=== PATIENT | female | born 1940 | race Caucasian/White ===

== ENCOUNTER 2020-05-25 17:15 | Inpatient (IN) | payer OTHER, MEDICAID ==
[~2020-05-25] VITALS: Ht 152.4 cm; Wt 78.5 kg
[~2020-05-25 17:15] MED LIST: BLOOD SUGAR DIAGNOSTIC STRIP TEST SCH; INSULIN GLARGINE UD 100 UNITS/ML SYR SUBCUT SCH; INSULIN LISPRO 100 UNITS/ML SUBCUT SCH
[2020-05-25] MEDS ORDERED: DEXAMETHASONE 10 MG/ML VIAL IV ONE (18:00)
[2020-05-25 19:12] LABS: BASOPHILS % 0.3 % (0.0-2.0); HEMATOCRIT. 44.6 % (36.0-48.0); LYMPHOCYTES % 23.6 % (20.0-50.0); MEAN CORPUSCULAR HEMOGLOBIN 28.6 pg (28.0-32.0); MEAN CORPUSCULAR VOLUME 85.2 fL (81.0-99.0); MEAN PLATELET VOLUME 9.6 fl (7.4-10.4); MONOCYTES % 6.1 % (2.0-8.0); PLATELET 182 x1000/uL (130-400); RED BLOOD CELL COUNT 5.23 mill/uL (4.2-5.4); RED CELL DISTRIBUTION WIDTH 14.9 % (11.6-14.6)
[2020-05-25 19:20] LABS: PARTIAL THROMBOPLASTIN TIME 30.1 sec (23.4-31.0)
[2020-05-25 19:21] LABS: CHLORIDE 94 mEq/L (98-107)
[2020-05-25 19:30] LABS: CLARITY URINE CLEAR (CLEAR); COLOR URINE YELLOW (YELLOW); KETONES URINE 1+ (NEGATIVE); LEUKOCYTE ESTERASE URINE TRACE (NEGATIVE); NITRITE URINE NEGATIVE (NEGATIVE); OCCULT BLOOD URINE NEGATIVE (NEGATIVE); PH URINE 7.5 (4.5-8.0); PROTEIN URINE 1+ (NEGATIVE)
[2020-05-25] MEDS ORDERED: POTASSIUM CHLORIDE 20MEQ TABLET SR PO ONE ×2 (19:45)
[2020-05-25] MEDS ORDERED: AZITHROMYCIN 500 MG in DEXT 5% WATER 250 ML IV ONE (19:45)
[2020-05-25] MEDS ORDERED: CEFTRIAXONE 1 G PREMIX 50 ML IV ONE (19:45)
[2020-05-25] MEDS ORDERED: ASPIRIN 325MG TABLET PO ONE (21:00)
[2020-05-25] MEDS ORDERED: CLONIDINE 0.1MG TABLET PO PRN (22:00)
[2020-05-25] MEDS ORDERED: NA PHOS,M-B/NA PHOS,DI-BA ENEMA 118ML PR PRN (22:00)
[2020-05-25] MEDS ORDERED: KETOROLAC 15MG/ML VIAL IV PRN (22:00)
[2020-05-25] MEDS ORDERED: ALBUTEROL 6.7GM HFA INHALER ORI PRN (22:00)
[2020-05-25] MEDS ORDERED: ZOLPIDEM TARTRATE 5MG TABLET PO PRN (22:00)
[2020-05-25] MEDS ORDERED: ONDANSETRON HCL 4MG/2ML INJ IV PRN (22:00)
[2020-05-25] MEDS ORDERED: ACETAMINOPHEN 325MG TABLET PO PRN (22:00)
[2020-05-25] MEDS ORDERED: SODIUM CHLORIDE 0.9% 1000ML BAG (SEPSIS BOLUS) IV NR (22:00)
[2020-05-25] MEDS ORDERED: MAGNESIUM/ALUMINUM HYDROXIDE/SIMETHICONE 30ML UDC PO PRN (22:00)
[2020-05-25] MEDS ORDERED: POTASSIUM CHLORIDE 20MEQ/PACKET PO NR (22:15)
[2020-05-25] MEDS ORDERED: KCL 20MEQ/100ML PREMIX 100 ML IV NR (22:15)
[2020-05-25 23:50] LABS: CREATINE KINASE 39 IU/L (26-192)
[2020-05-25] MEDS: BLOOD SUGAR DIAGNOSTIC STRIP TEST SCH (23:50)
[2020-05-25] MEDS: GUAIFENESIN/DM 600MG/30MG ER TAB 12HR PO SCH (23:50)
[2020-05-25 23:52] LABS: CREATINE KINASE MB FRACTION < 1.0 ng/mL (0.5-3.6)
[2020-05-25] MEDS: ENOXAPARIN 40MG/0.4ML SYR SUBCUT SCH (23:54)
[2020-05-26] MEDS: INSULIN LISPRO 100 UNITS/ML SUBCUT SCH ×3 (00:46→13:51)
[2020-05-26] MEDS: ALBUTEROL 6.7GM HFA INHALER ORI SCH ×2 (03:30→17:50)
[2020-05-26] MEDS: BLOOD SUGAR DIAGNOSTIC STRIP TEST SCH ×4 (06:38→21:00)
[2020-05-26] MEDS ORDERED: ALBUMIN HUMAN 25GM/100ML (25%) IV SCH (08:00)
[2020-05-26] MEDS: INSULIN GLARGINE UD 100 UNITS/ML SYR SUBCUT SCH (09:41)
[2020-05-26] MEDS: ASCORBIC ACID 500 MG TABLET PO SCH (09:41)
[2020-05-26] MEDS: ZINC SULFATE 220 MG ( 50 ) CAPSULE PO SCH (09:41)
[2020-05-26] MEDS: GUAIFENESIN/DM 600MG/30MG ER TAB 12HR PO SCH (09:41)
[2020-05-26] MEDS: ASPIRIN 325MG EC TABLET PO SCH (09:41)
[2020-05-26] MEDS: DEXAMETHASONE 10 MG/ML VIAL IV SCH (09:41)
[2020-05-26] MEDS: CHOLECALCIFEROL (D3) 1000 UNIT TABLET PO SCH (09:41)
[2020-05-26] MEDS: FAMOTIDINE 20MG TABLET PO SCH (09:41)
[2020-05-26 10:02] LABS: BASOPHILS % 0.2 % (0.0-2.0); HEMOGLOBIN. 12.5 g/dL (12.0-16.0); LYMPHOCYTES % 26.1 % (20.0-50.0); MEAN CORPUSCULAR VOLUME 85.9 fL (81.0-99.0); MEAN PLATELET VOLUME 9.3 fl (7.4-10.4); MONOCYTES % 5.6 % (2.0-8.0); NEUTROPHILS % 68.1 % (40.0-76.0); PLATELET 181 x1000/uL (130-400); RED BLOOD CELL COUNT 4.31 mill/uL (4.2-5.4); RED CELL DISTRIBUTION WIDTH 15.6 % (11.6-14.6)
[2020-05-26 11:32] LABS: CHLORIDE 109 mEq/L (98-107)
[2020-05-26 11:39] LABS: PHOSPHORUS 1.4 mg/dL (2.5-4.9)
[2020-05-26 11:41] LABS: CREATINE KINASE 38 IU/L (26-192)
[2020-05-26 11:44] LABS: CREATINE KINASE MB FRACTION < 1.0 ng/mL (0.5-3.6)
[2020-05-26] MEDS ORDERED: AZITHROMYCIN 500 MG in DEXT 5% WATER 250 ML IV SCH (21:00)
[2020-05-26] MEDS ORDERED: CEFTRIAXONE 1 G PREMIX 50 ML IV SCH (21:00)
[2020-05-27] MEDS: INSULIN LISPRO 100 UNITS/ML SUBCUT SCH ×6 (00:59→20:36)
[2020-05-27] MEDS: FAMOTIDINE 20MG TABLET PO SCH ×3 (00:59→20:40)
[2020-05-27] MEDS: GUAIFENESIN/DM 600MG/30MG ER TAB 12HR PO SCH ×3 (00:59→22:00)
[2020-05-27] MEDS: ASCORBIC ACID 500 MG TABLET PO SCH ×3 (00:59→20:42)
[2020-05-27] MEDS: ENOXAPARIN 40MG/0.4ML SYR SUBCUT SCH ×2 (01:00→23:36)
[2020-05-27 11:00] VITALS: BP 152/46
[2020-05-27 12:00] VITALS: BP 116/46
[2020-05-27] MEDS ORDERED: GABA-529 MT (12:56)
[2020-05-27] MEDS ORDERED: DAPA10TA MT (12:56)
[2020-05-27] MEDS ORDERED: SITA1TAB6 PO (12:56)
[2020-05-27] MEDS: ZINC SULFATE 220 MG ( 50 ) CAPSULE PO SCH (13:15)
[2020-05-27] MEDS: CHOLECALCIFEROL (D3) 1000 UNIT TABLET PO SCH (13:15)
[2020-05-27] MEDS: GUAIFENESIN 200MG/10ML SUGAR FREE UDC PO PRN ×2 (13:15→18:19)
[2020-05-27] MEDS: DEXAMETHASONE 10 MG/ML VIAL IV SCH (13:16)
[2020-05-27] MEDS: BENZONATATE 100MG CAPSULE PO SCH ×2 (13:31→22:01)
[2020-05-27] MEDS: INSULIN GLARGINE UD 100 UNITS/ML SYR SUBCUT SCH (13:32)
[2020-05-27 16:00] VITALS: BP 144/63
[2020-05-27] MEDS: BLOOD SUGAR DIAGNOSTIC STRIP TEST SCH ×2 (18:09→20:38)
[2020-05-27] MEDS: ASPIRIN 325MG EC TABLET PO SCH (18:20)
[2020-05-27] MEDS: ACETAMINOPHEN 325MG TABLET PO PRN (18:20)
[2020-05-27] MEDS: ALBUTEROL 6.7GM HFA INHALER ORI SCH (21:41)
[2020-05-27] MEDS: AZITHROMYCIN 500 MG in DEXT 5% WATER 250 ML IV SCH (21:44)
[2020-05-27] MEDS: CEFTRIAXONE 1,000 MG in CEFTRIAXONE 1 G PREMIX 50 ML IV SCH (21:46)
[2020-05-28] MEDS: GUAIFENESIN 200MG/10ML SUGAR FREE UDC PO PRN ×3 (00:34→21:19)
[2020-05-28] MEDS: BLOOD SUGAR DIAGNOSTIC STRIP TEST SCH ×4 (05:59→21:19)
[2020-05-28] MEDS: ALBUTEROL 6.7GM HFA INHALER ORI SCH ×3 (06:02→15:00)
[2020-05-28] MEDS: BENZONATATE 100MG CAPSULE PO SCH ×3 (06:09→21:18)
[2020-05-28] MEDS: INSULIN LISPRO 100 UNITS/ML SUBCUT SCH ×4 (06:54→21:00)
[2020-05-28] MEDS: ZINC SULFATE 220 MG ( 50 ) CAPSULE PO SCH (09:00)
[2020-05-28] MEDS: DEXAMETHASONE 10 MG/ML VIAL IV SCH (09:00)
[2020-05-28] MEDS: ASCORBIC ACID 500 MG TABLET PO SCH ×2 (09:01→21:18)
[2020-05-28] MEDS: ASPIRIN 325MG EC TABLET PO SCH (09:01)
[2020-05-28] MEDS: FAMOTIDINE 20MG TABLET PO SCH ×2 (09:01→21:18)
[2020-05-28] MEDS: CHOLECALCIFEROL (D3) 1000 UNIT TABLET PO SCH (09:01)
[2020-05-28] MEDS: GUAIFENESIN/DM 600MG/30MG ER TAB 12HR PO SCH ×2 (11:13→21:18)
[2020-05-28] MEDS: INSULIN GLARGINE UD 100 UNITS/ML SYR SUBCUT SCH (11:14)
[2020-05-28 12:00] VITALS: BP 112/59
[2020-05-28 16:00] VITALS: BP 123/57
[2020-05-28 20:00] VITALS: BP 92/71
[2020-05-28] MEDS: CEFTRIAXONE 1,000 MG in CEFTRIAXONE 1 G PREMIX 50 ML IV SCH (21:17)
[2020-05-28] MEDS: AZITHROMYCIN 500 MG in DEXT 5% WATER 250 ML IV SCH (21:18)
[2020-05-28] MEDS: ENOXAPARIN 40MG/0.4ML SYR SUBCUT SCH (21:18)
[2020-05-28 22:46] LABS: BG BASE EXCESS 1.1 mmol/L (-2.0-2.0); BG CARBOXYHEMOGLOBIN 0.7 % (0.5-1.5); BG DEOXYHEMOGLOBIN 7.9 % (0.0-5.0); BG FRACTION INSPIRED OXYGEN 100; BG HCO3 ACT 24.4 mmol/L (22.0-26.0); BG METHEMOGLOBIN 0.3 % (0.0-1.5); BG OXYHEMOGLOBIN 91.1 % (94.0-97.0); BG PCO2 34.7 mmHg (35.0-45.0); BG PH 7.465 (7.350-7.450); BG PO2 61.9 mmHg (75.0-100.0); BG SAMPLE SITE RIGHT RADIAL; BG TOTAL HEMOGLOBIN 12.7 g/dL (12.0-18.0); BG VENT MODE MASK - BIPAP
[2020-05-29] VITALS: BP 159/82
[2020-05-29 04:00] VITALS: BP 133/64
[2020-05-29] MEDS: BENZONATATE 100MG CAPSULE PO SCH ×3 (05:39→21:23)
[2020-05-29 08:00] VITALS: BP 110/63
[2020-05-29] MEDS: ASPIRIN 325MG EC TABLET PO SCH (08:29)
[2020-05-29] MEDS: FAMOTIDINE 20MG TABLET PO SCH ×2 (08:29→21:27)
[2020-05-29] MEDS: CHOLECALCIFEROL (D3) 1000 UNIT TABLET PO SCH (08:29)
[2020-05-29] MEDS: BLOOD SUGAR DIAGNOSTIC STRIP TEST SCH ×4 (08:30→21:26)
[2020-05-29] MEDS: DEXAMETHASONE 10 MG/ML VIAL IV SCH (08:30)
[2020-05-29] MEDS: ASCORBIC ACID 500 MG TABLET PO SCH ×2 (08:30→20:55)
[2020-05-29] MEDS: ZINC SULFATE 220 MG ( 50 ) CAPSULE PO SCH (08:30)
[2020-05-29] MEDS: INSULIN LISPRO 100 UNITS/ML SUBCUT SCH ×4 (08:32→21:00)
[2020-05-29] MEDS: GUAIFENESIN/DM 600MG/30MG ER TAB 12HR PO SCH ×2 (10:23→21:22)
[2020-05-29] MEDS: INSULIN GLARGINE UD 100 UNITS/ML SYR SUBCUT SCH (10:24)
[2020-05-29 12:00] VITALS: BP 112/85
[2020-05-29] MEDS: ALBUTEROL 6.7GM HFA INHALER ORI SCH ×2 (15:00→23:06)
[2020-05-29 16:00] VITALS: BP 132/57
[2020-05-29 20:00] VITALS: BP 116/74
[2020-05-29] MEDS: CEFTRIAXONE 1,000 MG in CEFTRIAXONE 1 G PREMIX 50 ML IV SCH (20:55)
[2020-05-29] MEDS: AZITHROMYCIN 500 MG in DEXT 5% WATER 250 ML IV SCH (21:59)
[2020-05-29] MEDS: ENOXAPARIN 40MG/0.4ML SYR SUBCUT SCH (22:00)
[2020-05-30] VITALS: BP 142/80
[2020-05-30 04:00] VITALS: BP 144/63
[2020-05-30] MEDS: BLOOD SUGAR DIAGNOSTIC STRIP TEST SCH ×4 (05:49→21:19)
[2020-05-30] MEDS: BENZONATATE 100MG CAPSULE PO SCH ×3 (05:49→21:19)
[2020-05-30] MEDS: ALBUTEROL 6.7GM HFA INHALER ORI SCH ×4 (05:50→21:34)
[2020-05-30 08:00] VITALS: BP 115/40
[2020-05-30] MEDS: INSULIN LISPRO 100 UNITS/ML SUBCUT SCH ×4 (08:09→21:00)
[2020-05-30] MEDS: DEXAMETHASONE 10 MG/ML VIAL IV SCH (11:18)
[2020-05-30] MEDS: CHOLECALCIFEROL (D3) 1000 UNIT TABLET PO SCH (11:18)
[2020-05-30] MEDS: ASPIRIN 325MG EC TABLET PO SCH (11:18)
[2020-05-30] MEDS: ASCORBIC ACID 500 MG TABLET PO SCH ×2 (11:18→21:18)
[2020-05-30] MEDS: GUAIFENESIN/DM 600MG/30MG ER TAB 12HR PO SCH ×2 (11:18→21:18)
[2020-05-30] MEDS: ZINC SULFATE 220 MG ( 50 ) CAPSULE PO SCH (11:18)
[2020-05-30] MEDS: FAMOTIDINE 20MG TABLET PO SCH ×2 (11:18→21:18)
[2020-05-30] MEDS: INSULIN GLARGINE UD 100 UNITS/ML SYR SUBCUT SCH (11:25)
[2020-05-30 12:00] VITALS: BP 126/39
[2020-05-30 16:00] VITALS: BP 107/68
[2020-05-30 20:00] VITALS: BP 109/49
[2020-05-30] MEDS: DEXTROSE 50% WATER 50ML SYRINGE IV PRN (20:09)
[2020-05-30] MEDS: AZITHROMYCIN 500 MG in DEXT 5% WATER 250 ML IV SCH (21:17)
[2020-05-30] MEDS: CEFTRIAXONE 1,000 MG in CEFTRIAXONE 1 G PREMIX 50 ML IV SCH (21:18)
[2020-05-30] MEDS: ENOXAPARIN 40MG/0.4ML SYR SUBCUT SCH (23:00)
[2020-05-31] VITALS: BP 114/77
[2020-05-31] MEDS: ALBUTEROL 6.7GM HFA INHALER ORI SCH ×4 (03:00→21:57)
[2020-05-31 04:00] VITALS: BP 110/82
[2020-05-31] MEDS: BENZONATATE 100MG CAPSULE PO SCH ×3 (05:59→21:17)
[2020-05-31] MEDS: DEXTROSE 50% WATER 50ML SYRINGE IV PRN ×2 (06:37→12:19)
[2020-05-31] MEDS: INSULIN LISPRO 100 UNITS/ML SUBCUT SCH ×4 (07:19→21:57)
[2020-05-31] MEDS: BLOOD SUGAR DIAGNOSTIC STRIP TEST SCH ×4 (07:19→21:00)
[2020-05-31] MEDS: FAMOTIDINE 20MG TABLET PO SCH ×2 (08:35→21:17)
[2020-05-31] MEDS: ZINC SULFATE 220 MG ( 50 ) CAPSULE PO SCH (08:35)
[2020-05-31] MEDS: CHOLECALCIFEROL (D3) 1000 UNIT TABLET PO SCH (08:35)
[2020-05-31] MEDS: ASCORBIC ACID 500 MG TABLET PO SCH ×2 (08:35→21:17)
[2020-05-31] MEDS: ASPIRIN 325MG EC TABLET PO SCH (08:35)
[2020-05-31] MEDS: DEXAMETHASONE 10 MG/ML VIAL IV SCH (08:35)
[2020-05-31] MEDS: DEXTROSE 5% WATER 1,000 ML IV SCH (08:36)
[2020-05-31] MEDS: INSULIN GLARGINE UD 100 UNITS/ML SYR SUBCUT SCH (10:00)
[2020-05-31 10:53] LABS: BASOPHILS % 0.2 % (0.0-2.0); EOSINOPHILS % 0.1 % (0.0-5.0); HEMATOCRIT. 42.4 % (36.0-48.0); HEMOGLOBIN. 14.5 g/dL (12.0-16.0); LYMPHOCYTES % 9.4 % (20.0-50.0); MEAN CORPUSCULAR HEMOGLOBIN 29.1 pg (28.0-32.0); MEAN CORPUSCULAR VOLUME 85.2 fL (81.0-99.0); MONOCYTES % 3.7 % (2.0-8.0); NEUTROPHILS % 86.6 % (40.0-76.0); RED BLOOD CELL COUNT 4.98 mill/uL (4.2-5.4); RED CELL DISTRIBUTION WIDTH 15.4 % (11.6-14.6)
[2020-05-31 10:57] LABS: CHLORIDE 101 mEq/L (98-107)
[2020-05-31] MEDS: GUAIFENESIN/DM 600MG/30MG ER TAB 12HR PO SCH ×2 (11:37→21:17)
[2020-05-31] MEDS ORDERED: LIDOCAINE HCL 1% 20ML VIAL (Pyxis) INJ ONE (11:38)
[2020-05-31] MEDS: POTASSIUM CHLORIDE 20MEQ/PACKET PO SCH ×2 (11:38→16:51)
[2020-05-31 12:00] VITALS: BP 125/92
[2020-05-31 12:30] LABS: PLATELET 297 x1000/uL (130-400)
[2020-05-31] MEDS: POTASSIUM CHLORIDE INJ 40 MEQ in DEXT 5% WATER 250 ML IV SCH ×2 (13:10→16:51)
[2020-05-31 16:00] VITALS: BP 132/58
[2020-05-31] MEDS ORDERED: POTASSIUM CHLORIDE 20MEQ/PACKET PO SCH (16:43)
[2020-05-31 20:00] VITALS: BP 124/69
[2020-05-31] MEDS: ENOXAPARIN 40MG/0.4ML SYR SUBCUT SCH (22:06)
[2020-06-01] VITALS: BP_SYST 112; BP_SYST 162; BP_DIAS 83
[2020-06-01] MEDS: ACETAMINOPHEN 325MG TABLET PO PRN (00:32)
[2020-06-01] MEDS: ALBUTEROL 6.7GM HFA INHALER ORI SCH ×4 (03:00→21:34)
[2020-06-01] MEDS: DEXTROSE 5% WATER 1,000 ML IV SCH (03:45)
[2020-06-01 04:00] VITALS: BP 122/64
[2020-06-01] MEDS: BLOOD SUGAR DIAGNOSTIC STRIP TEST SCH ×4 (05:05→20:54)
[2020-06-01] MEDS: BENZONATATE 100MG CAPSULE PO SCH ×3 (05:59→21:34)
[2020-06-01 08:00] VITALS: BP 147/52
[2020-06-01] MEDS: ASCORBIC ACID 500 MG TABLET PO SCH ×2 (10:08→21:34)
[2020-06-01] MEDS: DEXAMETHASONE 10 MG/ML VIAL IV SCH (10:09)
[2020-06-01] MEDS: FAMOTIDINE 20MG TABLET PO SCH ×2 (10:09→21:34)
[2020-06-01] MEDS: GUAIFENESIN/DM 600MG/30MG ER TAB 12HR PO SCH ×2 (10:09→21:34)
[2020-06-01] MEDS: ZINC SULFATE 220 MG ( 50 ) CAPSULE PO SCH (10:09)
[2020-06-01] MEDS: CHOLECALCIFEROL (D3) 1000 UNIT TABLET PO SCH (10:09)
[2020-06-01] MEDS: ASPIRIN 325MG EC TABLET PO SCH (10:09)
[2020-06-01] MEDS: INSULIN LISPRO 100 UNITS/ML SUBCUT SCH ×4 (10:10→20:54)
[2020-06-01] MEDS: INSULIN GLARGINE UD 100 UNITS/ML SYR SUBCUT SCH (10:54)
[2020-06-01 12:00] VITALS: BP 112/48
[2020-06-01 17:02] LABS: CHLORIDE 103 mEq/L (98-107)
[2020-06-01] MEDS: POTASSIUM CHLORIDE 20MEQ TABLET SR PO SCH (19:10)
[2020-06-01 20:00] VITALS: BP_SYST 111; BP_SYST 130; BP_DIAS 60; BP_DIAS 65
[2020-06-01] MEDS: ENOXAPARIN 40MG/0.4ML SYR SUBCUT SCH (22:25)
[2020-06-02] VITALS: BP 114/66
[2020-06-02] MEDS: DEXTROSE 5% WATER 1,000 ML IV SCH ×2 (03:27→16:42)
[2020-06-02] MEDS: ALBUTEROL 6.7GM HFA INHALER ORI SCH ×4 (03:27→22:00)
[2020-06-02 04:00] VITALS: BP 143/80
[2020-06-02] MEDS: BENZONATATE 100MG CAPSULE PO SCH ×3 (05:19→21:59)
[2020-06-02] MEDS: BLOOD SUGAR DIAGNOSTIC STRIP TEST SCH ×4 (06:36→21:00)
[2020-06-02 08:00] VITALS: BP 129/52
[2020-06-02] MEDS: ASPIRIN 325MG EC TABLET PO SCH (08:15)
[2020-06-02] MEDS: DEXAMETHASONE 10 MG/ML VIAL IV SCH (08:15)
[2020-06-02] MEDS: FAMOTIDINE 20MG TABLET PO SCH ×2 (08:15→21:59)
[2020-06-02] MEDS: ASCORBIC ACID 500 MG TABLET PO SCH ×2 (08:15→21:59)
[2020-06-02] MEDS: CHOLECALCIFEROL (D3) 1000 UNIT TABLET PO SCH (08:15)
[2020-06-02] MEDS: POTASSIUM CHLORIDE 20MEQ TABLET SR PO SCH (08:15)
[2020-06-02] MEDS: ZINC SULFATE 220 MG ( 50 ) CAPSULE PO SCH (08:15)
[2020-06-02] MEDS: INSULIN LISPRO 100 UNITS/ML SUBCUT SCH ×4 (08:17→21:00)
[2020-06-02] MEDS: INSULIN GLARGINE UD 100 UNITS/ML SYR SUBCUT SCH (09:32)
[2020-06-02] MEDS: GUAIFENESIN/DM 600MG/30MG ER TAB 12HR PO SCH ×2 (09:32→21:59)
[2020-06-02 12:00] VITALS: BP 91/43
[2020-06-02 16:00] VITALS: BP 95/34
[2020-06-02 20:00] VITALS: BP 112/58
[2020-06-02] MEDS: ENOXAPARIN 40MG/0.4ML SYR SUBCUT SCH (22:13)
[2020-06-03] VITALS: BP 119/50
[2020-06-03] MEDS: ALBUTEROL 6.7GM HFA INHALER ORI SCH ×4 (02:35→21:00)
[2020-06-03 04:00] VITALS: BP 107/32
[2020-06-03] MEDS: BENZONATATE 100MG CAPSULE PO SCH ×3 (05:08→20:59)
[2020-06-03] MEDS: BLOOD SUGAR DIAGNOSTIC STRIP TEST SCH ×4 (05:52→21:00)
[2020-06-03] MEDS: INSULIN LISPRO 100 UNITS/ML SUBCUT SCH ×4 (07:35→20:53)
[2020-06-03] MEDS: FAMOTIDINE 20MG TABLET PO SCH ×2 (08:29→20:59)
[2020-06-03] MEDS: ZINC SULFATE 220 MG ( 50 ) CAPSULE PO SCH (08:29)
[2020-06-03] MEDS: CHOLECALCIFEROL (D3) 1000 UNIT TABLET PO SCH (08:29)
[2020-06-03] MEDS: ASCORBIC ACID 500 MG TABLET PO SCH ×2 (08:29→20:59)
[2020-06-03] MEDS: DEXAMETHASONE 10 MG/ML VIAL IV SCH (08:30)
[2020-06-03] MEDS: ASPIRIN 325MG EC TABLET PO SCH (08:30)
[2020-06-03] MEDS: GUAIFENESIN/DM 600MG/30MG ER TAB 12HR PO SCH ×2 (10:22→20:59)
[2020-06-03] MEDS: INSULIN GLARGINE UD 100 UNITS/ML SYR SUBCUT SCH (10:22)
[2020-06-03 12:00] VITALS: BP 142/55
[2020-06-03] MEDS: DEXTROSE 5% WATER 1,000 ML IV SCH (14:57)
[2020-06-03 16:00] VITALS: BP 124/65
[2020-06-03 21:06] VITALS: BP 128/45
[2020-06-03] MEDS: ENOXAPARIN 40MG/0.4ML SYR SUBCUT SCH (22:50)
[2020-06-04] VITALS: BP 110/64
[2020-06-04] MEDS: ALBUTEROL 6.7GM HFA INHALER ORI SCH ×4 (03:44→20:06)
[2020-06-04 04:00] VITALS: BP 120/51
[2020-06-04] MEDS: BENZONATATE 100MG CAPSULE PO SCH ×3 (05:07→22:35)
[2020-06-04] MEDS: BLOOD SUGAR DIAGNOSTIC STRIP TEST SCH ×4 (06:07→21:00)
[2020-06-04] MEDS: INSULIN LISPRO 100 UNITS/ML SUBCUT SCH ×4 (06:11→21:57)
[2020-06-04 08:00] VITALS: BP 112/59
[2020-06-04] MEDS: ASPIRIN 325MG EC TABLET PO SCH (08:52)
[2020-06-04] MEDS: ZINC SULFATE 220 MG ( 50 ) CAPSULE PO SCH (08:52)
[2020-06-04] MEDS: ASCORBIC ACID 500 MG TABLET PO SCH ×2 (08:52→20:06)
[2020-06-04] MEDS: DEXAMETHASONE 10 MG/ML VIAL IV SCH (08:53)
[2020-06-04] MEDS: CHOLECALCIFEROL (D3) 1000 UNIT TABLET PO SCH (08:53)
[2020-06-04] MEDS: FAMOTIDINE 20MG TABLET PO SCH ×2 (09:00→20:06)
[2020-06-04] MEDS: INSULIN GLARGINE UD 100 UNITS/ML SYR SUBCUT SCH (09:36)
[2020-06-04] MEDS: GUAIFENESIN/DM 600MG/30MG ER TAB 12HR PO SCH ×2 (09:36→22:35)
[2020-06-04] MEDS: DEXTROSE 5% WATER 1,000 ML IV SCH (11:42)
[2020-06-04 12:00] VITALS: BP 132/52
[2020-06-04 20:00] VITALS: BP 128/90
[2020-06-04] MEDS: ENOXAPARIN 40MG/0.4ML SYR SUBCUT SCH (22:34)
[2020-06-05] VITALS (32 sets, daily range): BP systolic 66–214; BP diastolic 50–144
[2020-06-05] MEDS: ALBUTEROL 6.7GM HFA INHALER ORI SCH ×3 (02:19→14:18)
[2020-06-05] MEDS: BENZONATATE 100MG CAPSULE PO SCH ×3 (05:10→22:00)
[2020-06-05] MEDS: DEXTROSE 5% WATER 1,000 ML IV SCH (05:11)
[2020-06-05] MEDS: BLOOD SUGAR DIAGNOSTIC STRIP TEST SCH ×4 (05:36→21:00)
[2020-06-05] MEDS: ZINC SULFATE 220 MG ( 50 ) CAPSULE PO SCH (08:10)
[2020-06-05] MEDS: ASPIRIN 325MG EC TABLET PO SCH (08:10)
[2020-06-05] MEDS: ASCORBIC ACID 500 MG TABLET PO SCH ×2 (08:10→21:00)
[2020-06-05] MEDS: FAMOTIDINE 20MG TABLET PO SCH ×2 (08:10→21:00)
[2020-06-05] MEDS: INSULIN LISPRO 100 UNITS/ML SUBCUT SCH ×4 (08:11→23:13)
[2020-06-05] MEDS: CHOLECALCIFEROL (D3) 1000 UNIT TABLET PO SCH (08:11)
[2020-06-05] MEDS: GUAIFENESIN/DM 600MG/30MG ER TAB 12HR PO SCH ×2 (09:22→22:00)
[2020-06-05] MEDS: INSULIN GLARGINE UD 100 UNITS/ML SYR SUBCUT SCH (09:23)
[2020-06-05] MEDS: METHYLPREDNISOLONE SOD SUCC 40 MG/ML VIAL IV SCH ×2 (14:18→23:10)
[2020-06-05] MEDS ORDERED: LORAZEPAM 2MG/ML CPJ IV PRN (14:35)
[2020-06-05] MEDS ORDERED: MIDAZOLAM HCL 100 MG in SODIUM CHLORIDE 0.9% 80 ML IV PRN (15:15)
[2020-06-05] MEDS: PROPOFOL 10MG/ML 100ML 100 ML IV PRN ×2 (15:27→21:33)
[2020-06-05 16:08] LABS: BG BASE EXCESS 2.7 mmol/L (-2.0-2.0); BG CARBOXYHEMOGLOBIN 1.2 % (0.5-1.5); BG DEOXYHEMOGLOBIN 20.3 % (0.0-5.0); BG FRACTION INSPIRED OXYGEN 100; BG HCO3 ACT 27.8 mmol/L (22.0-26.0); BG METHEMOGLOBIN 0.3 % (0.0-1.5); BG OXYGEN SATURATION 79.4 % (92.0-98.5); BG OXYHEMOGLOBIN 78.2 % (94.0-97.0); BG PCO2 44.7 mmHg (35.0-45.0); BG PH 7.412 (7.350-7.450); BG PO2 44.3 mmHg (75.0-100.0); BG SAMPLE SITE RIGHT RADIAL; BG TOTAL HEMOGLOBIN 14.5 g/dL (12.0-18.0); BG VENT MODE VENT - AC
[2020-06-05] MEDS: NOREPINEPHRINE 32 MG in DEXT 5% WATER 218 ML IV PRN (17:24)
[2020-06-05] MEDS: PHENYLEPHRINE 100 MG in DEXT 5% WATER 240 ML IV PRN (17:26)
[2020-06-05 17:53] LABS: HEMATOCRIT. 40.7 % (36.0-48.0); HEMOGLOBIN. 13.5 g/dL (12.0-16.0); MEAN CORPUSCULAR HEMOGLOBIN 28.4 pg (28.0-32.0); MEAN CORPUSCULAR VOLUME 85.4 fL (81.0-99.0); MEAN PLATELET VOLUME 9.5 fl (7.4-10.4); PLATELET 259 x1000/uL (130-400); RED BLOOD CELL COUNT 4.76 mill/uL (4.2-5.4); RED CELL DISTRIBUTION WIDTH 15.7 % (11.6-14.6)
[2020-06-05 18:15] LABS: CHLORIDE 98 mEq/L (98-107)
[2020-06-05 18:18] LABS: PLATELET ESTIMATE NORMAL
[2020-06-05] MEDS: IPRATROPIUM/ALBUTEROL 0.5-3(2.5)MG/3ML NEB HHN SCH (20:00)
[2020-06-05] MEDS: ENOXAPARIN 40MG/0.4ML SYR SUBCUT SCH (23:10)
[2020-06-05] MEDS: FENTANYL CITRATE/PF 2,500 MCG in SODIUM CHLORIDE 0.9% 200 ML IV PRN (23:27)
[2020-06-06] VITALS (85 sets, daily range): BP systolic 85–190; BP diastolic 26–90
[2020-06-06] MEDS: IPRATROPIUM/ALBUTEROL 0.5-3(2.5)MG/3ML NEB HHN SCH ×5 (03:50→20:45)
[2020-06-06 05:12] LABS: CHLORIDE 97 mEq/L (98-107)
[2020-06-06 05:17] LABS: HEMATOCRIT. 38.8 % (36.0-48.0); HEMOGLOBIN. 12.9 g/dL (12.0-16.0); MEAN CORPUSCULAR HEMOGLOBIN 28.4 pg (28.0-32.0); MEAN CORPUSCULAR VOLUME 85.6 fL (81.0-99.0); MEAN PLATELET VOLUME 9.6 fl (7.4-10.4); PLATELET 220 x1000/uL (130-400); RED BLOOD CELL COUNT 4.53 mill/uL (4.2-5.4); RED CELL DISTRIBUTION WIDTH 15.8 % (11.6-14.6)
[2020-06-06] MEDS: METHYLPREDNISOLONE SOD SUCC 40 MG/ML VIAL IV SCH ×2 (05:21→14:39)
[2020-06-06] MEDS: BENZONATATE 100MG CAPSULE PO SCH ×3 (06:00→22:00)
[2020-06-06] MEDS: INSULIN LISPRO 100 UNITS/ML SUBCUT SCH ×3 (06:41→18:04)
[2020-06-06] MEDS: BLOOD SUGAR DIAGNOSTIC STRIP TEST SCH ×4 (06:44→21:00)
[2020-06-06] MEDS: DEXTROSE 5% WATER 1,000 ML IV SCH (06:53)
[2020-06-06] MEDS: ASCORBIC ACID 500 MG TABLET PO SCH (08:30)
[2020-06-06] MEDS: DOCUSATE SODIUM 100MG CAPSULE PO PRN (08:30)
[2020-06-06] MEDS: ASPIRIN 325MG EC TABLET PO SCH (08:30)
[2020-06-06] MEDS: GUAIFENESIN/DM 600MG/30MG ER TAB 12HR PO SCH (08:30)
[2020-06-06] MEDS: ZINC SULFATE 220 MG ( 50 ) CAPSULE PO SCH (08:30)
[2020-06-06] MEDS: CHOLECALCIFEROL (D3) 1000 UNIT TABLET PO SCH (08:30)
[2020-06-06] MEDS: FAMOTIDINE 20MG TABLET PO SCH (08:30)
[2020-06-06] MEDS: FENTANYL CITRATE/PF 2,500 MCG in SODIUM CHLORIDE 0.9% 200 ML IV PRN (08:32)
[2020-06-06] MEDS ORDERED: [UNRECOGNIZED DRUG - REMARK] XX SCH (09:30)
[2020-06-06 10:06] LABS: BG BASE EXCESS -0.7 mmol/L (-2.0-2.0); BG CARBOXYHEMOGLOBIN 0.3 % (0.5-1.5); BG DEOXYHEMOGLOBIN 0.9 % (0.0-5.0); BG FRACTION INSPIRED OXYGEN 100; BG HCO3 ACT 23.9 mmol/L (22.0-26.0); BG METHEMOGLOBIN 0.3 % (0.0-1.5); BG OXYGEN SATURATION 99.1 % (92.0-98.5); BG OXYHEMOGLOBIN 98.5 % (94.0-97.0); BG PCO2 39.3 mmHg (35.0-45.0); BG PH 7.402 (7.350-7.450); BG PO2 288.4 mmHg (75.0-100.0); BG SAMPLE SITE RIGHT RADIAL; BG TOTAL HEMOGLOBIN 12.7 g/dL (12.0-18.0); BG TOTAL RESPIRATORY RATE 22 b/min; BG VENT MODE VENT - AC
[2020-06-06] MEDS ORDERED: VANCOMYCIN 1 G PREMIX 200 ML IV NR (11:00)
[2020-06-06] MEDS: INSULIN GLARGINE UD 100 UNITS/ML SYR SUBCUT SCH (11:15)
[2020-06-06] MEDS: MEROPENEM 1000MG in NORMAL SALINE 100ML IV SCH ×2 (14:39→22:00)
[2020-06-06] MEDS: DEXT 5%/0.9% NACL 1,000 ML IV SCH (14:40)
[2020-06-06 18:39] LABS: CLARITY URINE CLEAR (CLEAR); COLOR URINE DARK YELLOW (YELLOW); KETONES URINE NEGATIVE (NEGATIVE); LEUKOCYTE ESTERASE URINE 1+ (NEGATIVE); NITRITE URINE NEGATIVE (NEGATIVE); OCCULT BLOOD URINE 2+ (NEGATIVE); PROTEIN URINE 1+ (NEGATIVE); SPECIFIC GRAVITY URINE 1.018 (1.005-1.030)
[2020-06-06 22:05] LABS: PLATELET ESTIMATE NORMAL
[2020-06-07] VITALS (220 sets, daily range): BP systolic 80–172; BP diastolic 38–87
[2020-06-07] MEDS: ASCORBIC ACID 500 MG TABLET PO SCH ×3 (00:08→22:01)
[2020-06-07] MEDS: FAMOTIDINE 20MG TABLET PO SCH ×3 (00:09→22:01)
[2020-06-07] MEDS: METHYLPREDNISOLONE SOD SUCC 40 MG/ML VIAL IV SCH ×4 (02:26→22:01)
[2020-06-07] MEDS: ENOXAPARIN 40MG/0.4ML SYR SUBCUT SCH ×2 (02:29→22:02)
[2020-06-07] MEDS: VANCOMYCIN 500 MG PREMIX 100 ML IV SCH ×3 (02:36→23:52)
[2020-06-07] MEDS: GUAIFENESIN/DM 600MG/30MG ER TAB 12HR PO SCH ×3 (02:36→21:09)
[2020-06-07] MEDS: BENZONATATE 100MG CAPSULE PO SCH ×3 (05:20→21:09)
[2020-06-07 05:31] LABS: HEMATOCRIT. 36.6 % (36.0-48.0); MEAN CORPUSCULAR VOLUME 85.7 fL (81.0-99.0); MEAN PLATELET VOLUME 9.9 fl (7.4-10.4); PLATELET 259 x1000/uL (130-400); RED BLOOD CELL COUNT 4.27 mill/uL (4.2-5.4); RED CELL DISTRIBUTION WIDTH 15.7 % (11.6-14.6)
[2020-06-07 05:40] LABS: CHLORIDE 102 mEq/L (98-107)
[2020-06-07] MEDS: MEROPENEM 1000MG in NORMAL SALINE 100ML IV SCH ×3 (06:07→21:59)
[2020-06-07] MEDS: BLOOD SUGAR DIAGNOSTIC STRIP TEST SCH ×4 (06:25→23:56)
[2020-06-07] MEDS: MIDAZOLAM 100MG/100ML PREMIX IV PRN ×2 (06:32→18:53)
[2020-06-07] MEDS: INSULIN LISPRO 100 UNITS/ML SUBCUT SCH ×4 (06:34→17:26)
[2020-06-07 08:18] LABS: BG BASE EXCESS 0.9 mmol/L (-2.0-2.0); BG CARBOXYHEMOGLOBIN 0.4 % (0.5-1.5); BG DEOXYHEMOGLOBIN 3.6 % (0.0-5.0); BG HCO3 ACT 26.4 mmol/L (22.0-26.0); BG METHEMOGLOBIN 0.3 % (0.0-1.5); BG OXYGEN SATURATION 96.4 % (92.0-98.5); BG OXYHEMOGLOBIN 95.7 % (94.0-97.0); BG PCO2 45.8 mmHg (35.0-45.0); BG PH 7.379 (7.350-7.450); BG PO2 91.3 mmHg (75.0-100.0); BG SAMPLE SITE RIGHT RADIAL; BG TOTAL HEMOGLOBIN 13.1 g/dL (12.0-18.0); BG VENT MODE VENT - AC
[2020-06-07] MEDS: IPRATROPIUM/ALBUTEROL 0.5-3(2.5)MG/3ML NEB HHN SCH ×3 (08:34→20:53)
[2020-06-07] MEDS: DOCUSATE SODIUM 100MG CAPSULE PO PRN (08:38)
[2020-06-07] MEDS: CHOLECALCIFEROL (D3) 1000 UNIT TABLET PO SCH (08:39)
[2020-06-07] MEDS: ASPIRIN 325MG EC TABLET PO SCH (08:39)
[2020-06-07] MEDS: ZINC SULFATE 220 MG ( 50 ) CAPSULE PO SCH (09:43)
[2020-06-07] MEDS: FENTANYL CITRATE/PF 2,500 MCG in SODIUM CHLORIDE 0.9% 200 ML IV PRN (09:44)
[2020-06-07] MEDS: INSULIN GLARGINE UD 100 UNITS/ML SYR SUBCUT SCH (09:46)
[2020-06-07] MEDS: DEXT 5%/0.9% NACL 1,000 ML IV SCH (10:22)
[2020-06-07 12:28] LABS: PLATELET ESTIMATE NORMAL
[2020-06-07] MEDS ORDERED: POTASSIUM CHLORIDE 20MEQ/PACKET PO NR (17:00)
[2020-06-07] MEDS ORDERED: MAGNESIUM 2 G PREMIX 50 ML IV NR (19:00)
[2020-06-08] VITALS (96 sets, daily range): BP systolic 83–196; BP diastolic 27–117
[2020-06-08] MEDS: INSULIN LISPRO 100 UNITS/ML SUBCUT SCH ×5 (00:06→23:24)
[2020-06-08] MEDS: IPRATROPIUM/ALBUTEROL 0.5-3(2.5)MG/3ML NEB HHN SCH ×4 (01:04→20:52)
[2020-06-08] MEDS: BENZONATATE 100MG CAPSULE PO SCH ×3 (05:38→21:03)
[2020-06-08] MEDS: MEROPENEM 1000MG in NORMAL SALINE 100ML IV SCH ×3 (05:39→21:02)
[2020-06-08 05:46] LABS: HEMATOCRIT. 35.5 % (36.0-48.0); HEMOGLOBIN. 11.5 g/dL (12.0-16.0); MEAN CORPUSCULAR HEMOGLOBIN 27.9 pg (28.0-32.0); MEAN CORPUSCULAR VOLUME 85.7 fL (81.0-99.0); PLATELET 268 x1000/uL (130-400); RED BLOOD CELL COUNT 4.14 mill/uL (4.2-5.4); RED CELL DISTRIBUTION WIDTH 15.9 % (11.6-14.6)
[2020-06-08] MEDS: METHYLPREDNISOLONE SOD SUCC 40 MG/ML VIAL IV SCH ×3 (05:57→21:02)
[2020-06-08 06:02] LABS: CHLORIDE 108 mEq/L (98-107)
[2020-06-08] MEDS: BLOOD SUGAR DIAGNOSTIC STRIP TEST SCH ×4 (06:02→23:24)
[2020-06-08 06:12] LABS: PHOSPHORUS 1.6 mg/dL (2.5-4.9)
[2020-06-08] MEDS: DEXT 5%/0.9% NACL 1,000 ML IV SCH (06:17)
[2020-06-08] MEDS: FAMOTIDINE 20MG TABLET PO SCH ×2 (08:12→21:04)
[2020-06-08] MEDS: CHOLECALCIFEROL (D3) 1000 UNIT TABLET PO SCH (08:12)
[2020-06-08] MEDS: GUAIFENESIN/DM 600MG/30MG ER TAB 12HR PO SCH ×2 (08:12→21:03)
[2020-06-08] MEDS: FENTANYL CITRATE/PF 2,500 MCG in SODIUM CHLORIDE 0.9% 200 ML IV PRN ×2 (08:12→19:00)
[2020-06-08] MEDS: ASCORBIC ACID 500 MG TABLET PO SCH ×2 (08:12→21:03)
[2020-06-08] MEDS: ZINC SULFATE 220 MG ( 50 ) CAPSULE PO SCH (08:12)
[2020-06-08] MEDS: ASPIRIN 325MG EC TABLET PO SCH (08:12)
[2020-06-08] MEDS: INSULIN GLARGINE UD 100 UNITS/ML SYR SUBCUT SCH (11:13)
[2020-06-08 11:22] LABS: NUCLEATED RED BLOOD CELLS 1 /100 WBC; PLATELET ESTIMATE NORMAL
[2020-06-08 11:25] LABS: BG BASE EXCESS 2.3 mmol/L (-2.0-2.0); BG CARBOXYHEMOGLOBIN 0.4 % (0.5-1.5); BG DEOXYHEMOGLOBIN 6.6 % (0.0-5.0); BG HCO3 ACT 27.7 mmol/L (22.0-26.0); BG METHEMOGLOBIN 0.3 % (0.0-1.5); BG OXYGEN SATURATION 93.4 % (92.0-98.5); BG OXYHEMOGLOBIN 92.7 % (94.0-97.0); BG PH 7.397 (7.350-7.450); BG PO2 70.5 mmHg (75.0-100.0); BG SAMPLE SITE RIGHT BRACHIAL; BG TOTAL HEMOGLOBIN 12.5 g/dL (12.0-18.0); BG VENT MODE VENT - AC
[2020-06-08] MEDS ORDERED: SODIUM PHOS,M-BASIC-D-BASIC 15 MM in DEXT 5% WATER 245 ML IV SCH (12:00)
[2020-06-08] MEDS: VANCOMYCIN 750 MG PREMIX 150 ML IV SCH ×2 (12:49→23:24)
[2020-06-08] MEDS: DOCUSATE SODIUM SUGAR FREE 100MG/10ML UDC NG PRN (13:05)
[2020-06-08] MEDS: IPRATROPIUM/ALBUTEROL 0.5-3(2.5)MG/3ML NEB HHN PRN (17:26)
[2020-06-08] MEDS: MIDAZOLAM 100MG/100ML PREMIX IV PRN (18:59)
[2020-06-08] MEDS: ENOXAPARIN 40MG/0.4ML SYR SUBCUT SCH (23:22)
[2020-06-09] VITALS (95 sets, daily range): BP systolic 74–175; BP diastolic 29–85
[2020-06-09] MEDS: PROPOFOL 10MG/ML 100ML 100 ML IV PRN ×2 (01:02→04:19)
[2020-06-09] MEDS: IPRATROPIUM/ALBUTEROL 0.5-3(2.5)MG/3ML NEB HHN SCH ×4 (02:38→21:26)
[2020-06-09] MEDS: DEXT 5%/0.9% NACL 1,000 ML IV SCH ×2 (02:45→23:17)
[2020-06-09] MEDS: MIDAZOLAM 100MG/100ML PREMIX IV PRN ×3 (03:13→23:23)
[2020-06-09] MEDS: FENTANYL CITRATE/PF 2,500 MCG in SODIUM CHLORIDE 0.9% 200 ML IV PRN ×3 (04:21→23:44)
[2020-06-09] MEDS: METHYLPREDNISOLONE SOD SUCC 40 MG/ML VIAL IV SCH ×3 (05:23→21:16)
[2020-06-09] MEDS: BLOOD SUGAR DIAGNOSTIC STRIP TEST SCH ×4 (05:24→23:24)
[2020-06-09] MEDS: INSULIN LISPRO 100 UNITS/ML SUBCUT SCH ×4 (05:24→23:24)
[2020-06-09] MEDS: MEROPENEM 1000MG in NORMAL SALINE 100ML IV SCH ×3 (05:25→21:15)
[2020-06-09] MEDS: BENZONATATE 100MG CAPSULE PO SCH ×3 (05:25→21:17)
[2020-06-09 05:59] LABS: HEMATOCRIT. 34.8 % (36.0-48.0); HEMOGLOBIN. 11.3 g/dL (12.0-16.0); MEAN CORPUSCULAR HEMOGLOBIN 28.3 pg (28.0-32.0); MEAN CORPUSCULAR VOLUME 86.9 fL (81.0-99.0); MEAN PLATELET VOLUME 9.7 fl (7.4-10.4); PLATELET 281 x1000/uL (130-400); RED CELL DISTRIBUTION WIDTH 15.7 % (11.6-14.6)
[2020-06-09 06:14] LABS: CHLORIDE 104 mEq/L (98-107)
[2020-06-09 06:22] LABS: PHOSPHORUS 2.3 mg/dL (2.5-4.9)
[2020-06-09] MEDS: DOCUSATE SODIUM SUGAR FREE 100MG/10ML UDC NG PRN (09:17)
[2020-06-09] MEDS: ASCORBIC ACID 500 MG TABLET PO SCH ×2 (09:18→21:16)
[2020-06-09] MEDS: ASPIRIN 325MG EC TABLET PO SCH (09:18)
[2020-06-09] MEDS: CHOLECALCIFEROL (D3) 1000 UNIT TABLET PO SCH (09:18)
[2020-06-09] MEDS: GUAIFENESIN/DM 600MG/30MG ER TAB 12HR PO SCH ×2 (09:18→21:17)
[2020-06-09] MEDS: ZINC SULFATE 220 MG ( 50 ) CAPSULE PO SCH (09:18)
[2020-06-09] MEDS: FAMOTIDINE 20MG TABLET PO SCH ×2 (09:18→21:16)
[2020-06-09] MEDS: INSULIN GLARGINE UD 100 UNITS/ML SYR SUBCUT SCH (10:53)
[2020-06-09 11:57] LABS: PLATELET ESTIMATE NORMAL
[2020-06-09] MEDS: VANCOMYCIN 750 MG PREMIX 150 ML IV SCH ×2 (12:38→23:22)
[2020-06-09] MEDS: ENOXAPARIN 40MG/0.4ML SYR SUBCUT SCH (23:23)
[2020-06-10] VITALS (93 sets, daily range): BP systolic 58–171; BP diastolic 33–94
[2020-06-10] MEDS: IPRATROPIUM/ALBUTEROL 0.5-3(2.5)MG/3ML NEB HHN SCH ×4 (03:35→21:38)
[2020-06-10] MEDS: MEROPENEM 1000MG in NORMAL SALINE 100ML IV SCH ×3 (05:55→21:17)
[2020-06-10] MEDS: BLOOD SUGAR DIAGNOSTIC STRIP TEST SCH ×3 (05:55→17:17)
[2020-06-10] MEDS: BENZONATATE 100MG CAPSULE PO SCH ×2 (05:55→14:00)
[2020-06-10] MEDS: INSULIN LISPRO 100 UNITS/ML SUBCUT SCH ×3 (05:55→18:33)
[2020-06-10] MEDS: METHYLPREDNISOLONE SOD SUCC 40 MG/ML VIAL IV SCH ×3 (05:55→21:17)
[2020-06-10 05:58] LABS: CHLORIDE 104 mEq/L (98-107)
[2020-06-10 08:22] LABS: BG BASE EXCESS 7.3 mmol/L (-2.0-2.0); BG CARBOXYHEMOGLOBIN 0.1 % (0.5-1.5); BG DEOXYHEMOGLOBIN 2.8 % (0.0-5.0); BG HCO3 ACT 33.8 mmol/L (22.0-26.0); BG METHEMOGLOBIN 0.3 % (0.0-1.5); BG OXYGEN SATURATION 97.2 % (92.0-98.5); BG OXYHEMOGLOBIN 96.8 % (94.0-97.0); BG PCO2 58.7 mmHg (35.0-45.0); BG PH 7.378 (7.350-7.450); BG PO2 106.4 mmHg (75.0-100.0); BG SAMPLE SITE RIGHT RADIAL; BG TOTAL HEMOGLOBIN 10.4 g/dL (12.0-18.0); BG VENT MODE VENT - P/C
[2020-06-10] MEDS: FAMOTIDINE 20MG TABLET PO SCH ×2 (09:38→21:17)
[2020-06-10] MEDS: CHOLECALCIFEROL (D3) 1000 UNIT TABLET PO SCH (09:38)
[2020-06-10] MEDS: ASPIRIN 325MG EC TABLET PO SCH (09:38)
[2020-06-10] MEDS: ASCORBIC ACID 500 MG TABLET PO SCH ×2 (09:38→21:17)
[2020-06-10] MEDS: GUAIFENESIN 200MG/10ML SUGAR FREE UDC PO PRN (09:40)
[2020-06-10] MEDS: ZINC SULFATE 220 MG ( 50 ) CAPSULE PO SCH (09:40)
[2020-06-10] MEDS: INSULIN GLARGINE UD 100 UNITS/ML SYR SUBCUT SCH (09:44)
[2020-06-10] MEDS: VANCOMYCIN 1 G PREMIX 200 ML IV SCH (11:51)
[2020-06-10] MEDS ORDERED: SODIUM CHLORIDE 0.45% 250 ML IV ONE (15:00)
[2020-06-10] MEDS: FENTANYL CITRATE/PF 2,500 MCG in SODIUM CHLORIDE 0.9% 200 ML IV PRN (15:27)
[2020-06-10] MEDS: MIDAZOLAM 100MG/100ML PREMIX IV PRN (15:28)
[2020-06-10] MEDS: PHENYLEPHRINE 100 MG in DEXT 5% WATER 240 ML IV PRN (17:15)
[2020-06-11] VITALS (94 sets, daily range): BP systolic 79–163; BP diastolic 41–84
[2020-06-11] MEDS: VANCOMYCIN 1 G PREMIX 200 ML IV SCH ×2 (00:04→12:33)
[2020-06-11] MEDS: BLOOD SUGAR DIAGNOSTIC STRIP TEST SCH ×4 (00:04→17:27)
[2020-06-11] MEDS: INSULIN LISPRO 100 UNITS/ML SUBCUT SCH ×4 (00:06→17:27)
[2020-06-11] MEDS: IPRATROPIUM/ALBUTEROL 0.5-3(2.5)MG/3ML NEB HHN SCH ×4 (01:05→19:58)
[2020-06-11] MEDS: ENOXAPARIN 40MG/0.4ML SYR SUBCUT SCH (01:36)
[2020-06-11] MEDS: FENTANYL CITRATE/PF 2,500 MCG in SODIUM CHLORIDE 0.9% 200 ML IV PRN ×2 (03:12→17:29)
[2020-06-11] MEDS: MIDAZOLAM 100MG/100ML PREMIX IV PRN ×2 (03:15→15:29)
[2020-06-11] MEDS: MEROPENEM 1000MG in NORMAL SALINE 100ML IV SCH ×3 (05:22→21:16)
[2020-06-11] MEDS: METHYLPREDNISOLONE SOD SUCC 40 MG/ML VIAL IV SCH ×3 (05:22→21:16)
[2020-06-11 09:57] LABS: BG BASE EXCESS 5.7 mmol/L (-2.0-2.0); BG CARBOXYHEMOGLOBIN 0.6 % (0.5-1.5); BG DEOXYHEMOGLOBIN 8.6 % (0.0-5.0); BG FRACTION INSPIRED OXYGEN 100; BG HCO3 ACT 31.9 mmol/L (22.0-26.0); BG METHEMOGLOBIN 0.3 % (0.0-1.5); BG OXYGEN SATURATION 91.3 % (92.0-98.5); BG OXYHEMOGLOBIN 90.5 % (94.0-97.0); BG PCO2 54.5 mmHg (35.0-45.0); BG PH 7.385 (7.350-7.450); BG PO2 62.5 mmHg (75.0-100.0); BG SAMPLE SITE LEFT RADIAL; BG VENT MODE VENT - P/C
[2020-06-11] MEDS: DOCUSATE SODIUM SUGAR FREE 100MG/10ML UDC NG PRN (10:05)
[2020-06-11] MEDS: ASPIRIN 325MG EC TABLET PO SCH (10:06)
[2020-06-11] MEDS: ZINC SULFATE 220 MG ( 50 ) CAPSULE PO SCH (10:06)
[2020-06-11] MEDS: ASCORBIC ACID 500 MG TABLET PO SCH ×2 (10:06→21:16)
[2020-06-11] MEDS: FAMOTIDINE 20MG TABLET PO SCH ×2 (10:06→21:16)
[2020-06-11] MEDS: CHOLECALCIFEROL (D3) 1000 UNIT TABLET PO SCH (10:07)
[2020-06-11] MEDS: INSULIN GLARGINE UD 100 UNITS/ML SYR SUBCUT SCH (10:08)
[2020-06-11] MEDS ORDERED: LACTULOSE 20G/30ML UDC PO PRN (11:00)
[2020-06-11] MEDS: BISACODYL 10MG SUPP PR PRN (12:33)
[2020-06-11] MEDS: DEXT 5%/0.9% NACL 1,000 ML IV SCH (12:34)
[2020-06-12] VITALS (91 sets, daily range): BP systolic 88–166; BP diastolic 45–118
[2020-06-12] MEDS: MIDAZOLAM 100MG/100ML PREMIX IV PRN ×2 (00:01→08:52)
[2020-06-12] MEDS: VANCOMYCIN 1 G PREMIX 200 ML IV SCH ×2 (00:05→11:16)
[2020-06-12] MEDS: ENOXAPARIN 40MG/0.4ML SYR SUBCUT SCH (00:05)
[2020-06-12] MEDS: BLOOD SUGAR DIAGNOSTIC STRIP TEST SCH ×4 (00:22→17:00)
[2020-06-12] MEDS: INSULIN LISPRO 100 UNITS/ML SUBCUT SCH ×4 (00:25→17:05)
[2020-06-12] MEDS: IPRATROPIUM/ALBUTEROL 0.5-3(2.5)MG/3ML NEB HHN SCH ×4 (02:06→20:07)
[2020-06-12] MEDS: FENTANYL CITRATE/PF 2,500 MCG in SODIUM CHLORIDE 0.9% 200 ML IV PRN ×2 (04:32→15:00)
[2020-06-12 05:19] LABS: HEMATOCRIT. 34.1 % (36.0-48.0); MEAN CORPUSCULAR VOLUME 86.6 fL (81.0-99.0); MEAN PLATELET VOLUME 10.2 fl (7.4-10.4); PLATELET 247 x1000/uL (130-400); RED BLOOD CELL COUNT 3.94 mill/uL (4.2-5.4); RED CELL DISTRIBUTION WIDTH 16.3 % (11.6-14.6)
[2020-06-12 05:24] LABS: CHLORIDE 100 mEq/L (98-107)
[2020-06-12] MEDS: MEROPENEM 1000MG in NORMAL SALINE 100ML IV SCH ×3 (05:36→20:47)
[2020-06-12] MEDS: METHYLPREDNISOLONE SOD SUCC 40 MG/ML VIAL IV SCH ×3 (05:36→20:47)
[2020-06-12] MEDS ORDERED: ACETAMINOPHEN 325MG TABLET GT PRN ×2 (07:40→07:41)
[2020-06-12] MEDS ORDERED: CLONIDINE 0.1MG TABLET GT PRN (07:44)
[2020-06-12] MEDS ORDERED: MAGNESIUM/ALUMINUM HYDROXIDE/SIMETHICONE 30ML UDC GT PRN (07:45)
[2020-06-12] MEDS ORDERED: GUAIFENESIN 200MG/10ML SUGAR FREE UDC GT PRN (07:45)
[2020-06-12] MEDS: LACTULOSE 20G/30ML UDC GT PRN (08:49)
[2020-06-12] MEDS: ASPIRIN 325MG TABLET GT SCH (08:50)
[2020-06-12] MEDS: ZINC SULFATE 220 MG ( 50 ) CAPSULE GT SCH (08:50)
[2020-06-12] MEDS: CHOLECALCIFEROL (D3) 1000 UNIT TABLET GT SCH (08:51)
[2020-06-12] MEDS: FAMOTIDINE 20MG TABLET GT SCH ×2 (08:51→20:47)
[2020-06-12] MEDS: ASCORBIC ACID 500 MG TABLET GT SCH ×2 (08:51→20:45)
[2020-06-12 09:22] LABS: BG BASE EXCESS 8.7 mmol/L (-2.0-2.0); BG CARBOXYHEMOGLOBIN 0.9 % (0.5-1.5); BG DEOXYHEMOGLOBIN 6.6 % (0.0-5.0); BG FRACTION INSPIRED OXYGEN 100; BG HCO3 ACT 35.1 mmol/L (22.0-26.0); BG METHEMOGLOBIN 0.3 % (0.0-1.5); BG OXYGEN SATURATION 93.3 % (92.0-98.5); BG OXYHEMOGLOBIN 92.2 % (94.0-97.0); BG PCO2 57.5 mmHg (35.0-45.0); BG PH 7.404 (7.350-7.450); BG PO2 67.2 mmHg (75.0-100.0); BG SAMPLE SITE LEFT RADIAL; BG TOTAL HEMOGLOBIN 11.8 g/dL (12.0-18.0); BG VENT MODE VENT - P/C
[2020-06-12 10:41] LABS: PLATELET ESTIMATE NORMAL
[2020-06-12] MEDS: INSULIN GLARGINE UD 100 UNITS/ML SYR SUBCUT SCH (11:17)
[2020-06-12] MEDS: DEXT 5%/0.9% NACL 1,000 ML IV SCH (11:17)
[2020-06-13] VITALS (88 sets, daily range): BP systolic 72–202; BP diastolic 31–105
[2020-06-13] MEDS: IPRATROPIUM/ALBUTEROL 0.5-3(2.5)MG/3ML NEB HHN SCH ×4 (00:23→20:33)
[2020-06-13] MEDS: ENOXAPARIN 40MG/0.4ML SYR SUBCUT SCH ×2 (00:38→22:31)
[2020-06-13] MEDS: BLOOD SUGAR DIAGNOSTIC STRIP TEST SCH ×4 (00:40→18:12)
[2020-06-13] MEDS: INSULIN LISPRO 100 UNITS/ML SUBCUT SCH ×4 (00:41→18:00)
[2020-06-13] MEDS: VANCOMYCIN 1 G PREMIX 200 ML IV SCH (00:43)
[2020-06-13] MEDS: FENTANYL CITRATE/PF 2,500 MCG in SODIUM CHLORIDE 0.9% 200 ML IV PRN ×3 (02:39→22:20)
[2020-06-13] MEDS: METHYLPREDNISOLONE SOD SUCC 40 MG/ML VIAL IV SCH ×3 (05:18→22:30)
[2020-06-13] MEDS: MEROPENEM 1000MG in NORMAL SALINE 100ML IV SCH ×3 (05:18→22:19)
[2020-06-13 05:31] LABS: HEMATOCRIT. 31.3 % (36.0-48.0); HEMOGLOBIN. 10.5 g/dL (12.0-16.0); MEAN CORPUSCULAR HEMOGLOBIN 28.9 pg (28.0-32.0); MEAN CORPUSCULAR VOLUME 86.1 fL (81.0-99.0); MEAN PLATELET VOLUME 10.4 fl (7.4-10.4); PLATELET 212 x1000/uL (130-400); RED BLOOD CELL COUNT 3.64 mill/uL (4.2-5.4); RED CELL DISTRIBUTION WIDTH 15.9 % (11.6-14.6)
[2020-06-13 05:47] LABS: CHLORIDE 96 mEq/L (98-107)
[2020-06-13] MEDS: ASCORBIC ACID 500 MG TABLET GT SCH ×2 (08:47→22:18)
[2020-06-13] MEDS: BISACODYL 10MG SUPP PR PRN (08:47)
[2020-06-13] MEDS: ASPIRIN 325MG TABLET GT SCH (08:47)
[2020-06-13] MEDS: CHOLECALCIFEROL (D3) 1000 UNIT TABLET GT SCH (08:47)
[2020-06-13] MEDS: FAMOTIDINE 20MG TABLET GT SCH ×2 (08:47→22:19)
[2020-06-13] MEDS: ZINC SULFATE 220 MG ( 50 ) CAPSULE GT SCH (08:47)
[2020-06-13] MEDS: DOCUSATE SODIUM SUGAR FREE 100MG/10ML UDC NG PRN (08:47)
[2020-06-13 08:57] LABS: BG BASE EXCESS 13.9 mmol/L (-2.0-2.0); BG CARBOXYHEMOGLOBIN 0.6 % (0.5-1.5); BG DEOXYHEMOGLOBIN 5.5 % (0.0-5.0); BG FRACTION INSPIRED OXYGEN 100; BG HCO3 ACT 40.5 mmol/L (22.0-26.0); BG METHEMOGLOBIN 0.3 % (0.0-1.5); BG OXYGEN SATURATION 94.5 % (92.0-98.5); BG OXYHEMOGLOBIN 93.6 % (94.0-97.0); BG PCO2 61.9 mmHg (35.0-45.0); BG PH 7.434 (7.350-7.450); BG PO2 76.8 mmHg (75.0-100.0); BG SAMPLE SITE RIGHT RADIAL; BG TOTAL HEMOGLOBIN 11.3 g/dL (12.0-18.0)
[2020-06-13] MEDS: INSULIN GLARGINE UD 100 UNITS/ML SYR SUBCUT SCH (09:46)
[2020-06-13 09:56] LABS: BG VENT MODE VENT - P/C
[2020-06-13 10:04] LABS: PLATELET ESTIMATE NORMAL
[2020-06-13] MEDS: MIDAZOLAM 100MG/100ML PREMIX IV PRN (13:52)
[2020-06-13] MEDS: FLUCONAZOLE 100MG TABLET PO SCH (18:12)
[2020-06-13] MEDS: LINEZOLID 600MG TABLET PO SCH (22:18)
[2020-06-13] MEDS: PHENYLEPHRINE 100 MG in DEXT 5% WATER 240 ML IV PRN (22:19)
[2020-06-13] MEDS: PROPOFOL 10MG/ML 100ML 100 ML IV PRN (22:30)
[2020-06-13] MEDS: DEXTROSE 50% WATER 50ML SYRINGE IV PRN (23:08)
[2020-06-14] VITALS (92 sets, daily range): BP systolic 64–184; BP diastolic 36–90
[2020-06-14] MEDS ORDERED: VANCOMYCIN 1 G PREMIX 200 ML IV SCH
[2020-06-14] MEDS: IPRATROPIUM/ALBUTEROL 0.5-3(2.5)MG/3ML NEB HHN SCH ×4 (00:14→20:18)
[2020-06-14] MEDS: PROPOFOL 10MG/ML 100ML 100 ML IV PRN ×3 (03:15→22:05)
[2020-06-14] MEDS: MIDAZOLAM 100MG/100ML PREMIX IV PRN ×2 (03:21→19:30)
[2020-06-14] MEDS: BLOOD SUGAR DIAGNOSTIC STRIP TEST SCH ×4 (05:30→17:40)
[2020-06-14] MEDS: INSULIN LISPRO 100 UNITS/ML SUBCUT SCH ×5 (05:31→23:37)
[2020-06-14 05:44] LABS: HEMATOCRIT. 34.4 % (36.0-48.0); HEMOGLOBIN. 11.4 g/dL (12.0-16.0); MEAN CORPUSCULAR HEMOGLOBIN 28.4 pg (28.0-32.0); MEAN CORPUSCULAR VOLUME 86.2 fL (81.0-99.0); MEAN PLATELET VOLUME 9.9 fl (7.4-10.4); PLATELET 224 x1000/uL (130-400); RED CELL DISTRIBUTION WIDTH 15.9 % (11.6-14.6)
[2020-06-14 06:03] LABS: CHLORIDE 91 mEq/L (98-107)
[2020-06-14 06:13] LABS: CREATINE KINASE 44 IU/L (26-192)
[2020-06-14] MEDS: METHYLPREDNISOLONE SOD SUCC 40 MG/ML VIAL IV SCH ×3 (06:25→21:44)
[2020-06-14] MEDS: MEROPENEM 1000MG in NORMAL SALINE 100ML IV SCH ×3 (06:26→21:44)
[2020-06-14] MEDS: FLUCONAZOLE 100MG TABLET PO SCH (09:20)
[2020-06-14] MEDS: ASCORBIC ACID 500 MG TABLET GT SCH ×2 (09:20→20:45)
[2020-06-14] MEDS: ZINC SULFATE 220 MG ( 50 ) CAPSULE GT SCH (09:20)
[2020-06-14] MEDS: CHOLECALCIFEROL (D3) 1000 UNIT TABLET GT SCH (09:21)
[2020-06-14] MEDS: FAMOTIDINE 20MG TABLET GT SCH ×2 (09:21→20:45)
[2020-06-14] MEDS: ASPIRIN 325MG TABLET GT SCH (09:21)
[2020-06-14] MEDS: LINEZOLID 600MG TABLET PO SCH ×2 (09:22→20:45)
[2020-06-14] MEDS: INSULIN GLARGINE UD 100 UNITS/ML SYR SUBCUT SCH (09:54)
[2020-06-14 11:01] LABS: BG BASE EXCESS 14.7 mmol/L (-2.0-2.0); BG CARBOXYHEMOGLOBIN 0.8 % (0.5-1.5); BG DEOXYHEMOGLOBIN 9.9 % (0.0-5.0); BG FRACTION INSPIRED OXYGEN 100; BG HCO3 ACT 40.1 mmol/L (22.0-26.0); BG METHEMOGLOBIN 0.3 % (0.0-1.5); BG PCO2 53.1 mmHg (35.0-45.0); BG PH 7.496 (7.350-7.450); BG PO2 53.9 mmHg (75.0-100.0); BG SAMPLE SITE RIGHT RADIAL; BG TOTAL HEMOGLOBIN 12.1 g/dL (12.0-18.0); BG VENT MODE VENT - P/C
[2020-06-14] MEDS: FENTANYL CITRATE/PF 2,500 MCG in SODIUM CHLORIDE 0.9% 200 ML IV PRN (13:48)
[2020-06-14 16:32] LABS: PLATELET ESTIMATE NORMAL
[2020-06-14] MEDS: ENOXAPARIN 40MG/0.4ML SYR SUBCUT SCH (23:04)
[2020-06-15] VITALS (74 sets, daily range): BP systolic 102–164; BP diastolic 52–80
[2020-06-15] MEDS: IPRATROPIUM/ALBUTEROL 0.5-3(2.5)MG/3ML NEB HHN SCH ×4 (00:07→22:13)
[2020-06-15] MEDS: FENTANYL CITRATE/PF 2,500 MCG in SODIUM CHLORIDE 0.9% 200 ML IV PRN ×2 (00:27→02:46)
[2020-06-15] MEDS ORDERED: PROPOFOL 10MG/ML 100ML 100 ML IV PRN (04:15)
[2020-06-15] MEDS: MEROPENEM 1000MG in NORMAL SALINE 100ML IV SCH ×3 (05:12→22:00)
[2020-06-15] MEDS: PROPOFOL 10MG/ML 100ML 100 ML IV PRN (05:13)
[2020-06-15] MEDS: METHYLPREDNISOLONE SOD SUCC 40 MG/ML VIAL IV SCH ×3 (05:13→22:00)
[2020-06-15] MEDS: INSULIN LISPRO 100 UNITS/ML SUBCUT SCH ×3 (05:37→18:00)
[2020-06-15] MEDS: BLOOD SUGAR DIAGNOSTIC STRIP TEST SCH ×4 (05:38→18:36)
[2020-06-15] MEDS: FLUCONAZOLE 100MG TABLET PO SCH (08:28)
[2020-06-15] MEDS: LINEZOLID 600MG TABLET PO SCH ×2 (08:28→21:00)
[2020-06-15] MEDS: FAMOTIDINE 20MG TABLET GT SCH ×2 (08:28→21:00)
[2020-06-15] MEDS: ZINC SULFATE 220 MG ( 50 ) CAPSULE GT SCH (08:28)
[2020-06-15] MEDS: ASCORBIC ACID 500 MG TABLET GT SCH ×2 (08:28→21:00)
[2020-06-15] MEDS: ASPIRIN 325MG TABLET GT SCH (08:29)
[2020-06-15] MEDS: CHOLECALCIFEROL (D3) 1000 UNIT TABLET GT SCH (08:32)
[2020-06-15] MEDS: INSULIN GLARGINE UD 100 UNITS/ML SYR SUBCUT SCH (09:02)
[2020-06-15 10:10] LABS: HEMATOCRIT. 35.3 % (36.0-48.0); HEMOGLOBIN. 11.5 g/dL (12.0-16.0); MEAN CORPUSCULAR HEMOGLOBIN 28.3 pg (28.0-32.0); MEAN CORPUSCULAR VOLUME 86.9 fL (81.0-99.0); MEAN PLATELET VOLUME 10.1 fl (7.4-10.4); PLATELET 211 x1000/uL (130-400); RED BLOOD CELL COUNT 4.06 mill/uL (4.2-5.4); RED CELL DISTRIBUTION WIDTH 16.5 % (11.6-14.6)
[2020-06-15 10:29] LABS: CHLORIDE 96 mEq/L (98-107)
[2020-06-15 10:30] LABS: BG BASE EXCESS 16.9 mmol/L (-2.0-2.0); BG CARBOXYHEMOGLOBIN 0.8 % (0.5-1.5); BG DEOXYHEMOGLOBIN 10.4 % (0.0-5.0); BG FRACTION INSPIRED OXYGEN 100; BG HCO3 ACT 43.1 mmol/L (22.0-26.0); BG METHEMOGLOBIN 0.3 % (0.0-1.5); BG OXYGEN SATURATION 89.5 % (92.0-98.5); BG OXYHEMOGLOBIN 88.5 % (94.0-97.0); BG PCO2 59.3 mmHg (35.0-45.0); BG PH 7.479 (7.350-7.450); BG PO2 55.3 mmHg (75.0-100.0); BG SAMPLE SITE RIGHT RADIAL; BG TOTAL HEMOGLOBIN 11.9 g/dL (12.0-18.0); BG VENT MODE VENT - P/C
[2020-06-15 14:03] LABS: PLATELET ESTIMATE NORMAL
[2020-06-15] MEDS: MIDAZOLAM 100MG/100ML PREMIX IV PRN ×2 (15:42→19:13)
[2020-06-15] MEDS: ENOXAPARIN 40MG/0.4ML SYR SUBCUT SCH (23:19)
[2020-06-16] VITALS (32 sets, daily range): BP systolic 94–131; BP diastolic 47–68
[2020-06-16] MEDS: INSULIN LISPRO 100 UNITS/ML SUBCUT SCH ×4 (00:18→18:00)
[2020-06-16] MEDS: BLOOD SUGAR DIAGNOSTIC STRIP TEST SCH ×4 (00:19→06:34)
[2020-06-16] MEDS: FENTANYL CITRATE/PF 2,500 MCG in SODIUM CHLORIDE 0.9% 200 ML IV PRN ×2 (03:20→18:46)
[2020-06-16] MEDS: IPRATROPIUM/ALBUTEROL 0.5-3(2.5)MG/3ML NEB HHN SCH ×4 (04:54→22:14)
[2020-06-16] MEDS: MEROPENEM 1000MG in NORMAL SALINE 100ML IV SCH ×3 (06:30→23:18)
[2020-06-16] MEDS: METHYLPREDNISOLONE SOD SUCC 40 MG/ML VIAL IV SCH ×3 (06:31→21:55)
[2020-06-16] MEDS: FAMOTIDINE 20MG TABLET GT SCH ×2 (10:00→20:52)
[2020-06-16] MEDS: LINEZOLID 600MG TABLET PO SCH ×2 (10:00→20:56)
[2020-06-16] MEDS: ASCORBIC ACID 500 MG TABLET GT SCH ×2 (10:00→20:51)
[2020-06-16] MEDS: FLUCONAZOLE 100MG TABLET PO SCH (10:02)
[2020-06-16] MEDS: INSULIN GLARGINE UD 100 UNITS/ML SYR SUBCUT SCH (10:03)
[2020-06-16] MEDS: ASPIRIN 325MG TABLET GT SCH (10:03)
[2020-06-16] MEDS: CHOLECALCIFEROL (D3) 1000 UNIT TABLET GT SCH (10:03)
[2020-06-16] MEDS: ZINC SULFATE 220 MG ( 50 ) CAPSULE GT SCH (10:04)
[2020-06-16 11:09] LABS: BG BASE EXCESS 13.1 mmol/L (-2.0-2.0); BG CARBOXYHEMOGLOBIN 0.3 % (0.5-1.5); BG DEOXYHEMOGLOBIN 4.5 % (0.0-5.0); BG FRACTION INSPIRED OXYGEN 100; BG HCO3 ACT 38.5 mmol/L (22.0-26.0); BG METHEMOGLOBIN 0.3 % (0.0-1.5); BG OXYGEN SATURATION 95.5 % (92.0-98.5); BG OXYHEMOGLOBIN 94.9 % (94.0-97.0); BG PCO2 53.4 mmHg (35.0-45.0); BG PH 7.476 (7.350-7.450); BG SAMPLE SITE RIGHT RADIAL; BG TOTAL HEMOGLOBIN 10.8 g/dL (12.0-18.0); BG VENT MODE VENT - P/C
[2020-06-16] MEDS: MIDAZOLAM 100MG/100ML PREMIX IV PRN (15:14)
[2020-06-16] MEDS: ENOXAPARIN 40MG/0.4ML SYR SUBCUT SCH (23:21)
[2020-06-17] VITALS (45 sets, daily range): BP systolic 107–132; BP diastolic 53–73
[2020-06-17] MEDS: IPRATROPIUM/ALBUTEROL 0.5-3(2.5)MG/3ML NEB HHN SCH ×4 (03:44→20:54)
[2020-06-17] MEDS: MIDAZOLAM HCL 100 MG in SODIUM CHLORIDE 0.9% 100 ML IV PRN ×2 (04:21→18:14)
[2020-06-17] MEDS: METHYLPREDNISOLONE SOD SUCC 40 MG/ML VIAL IV SCH ×3 (05:27→21:10)
[2020-06-17] MEDS: BLOOD SUGAR DIAGNOSTIC STRIP TEST SCH ×4 (05:55→17:53)
[2020-06-17] MEDS: INSULIN LISPRO 100 UNITS/ML SUBCUT SCH ×4 (05:59→17:53)
[2020-06-17 08:28] LABS: BG BASE EXCESS 12.7 mmol/L (-2.0-2.0); BG CARBOXYHEMOGLOBIN 0.5 % (0.5-1.5); BG DEOXYHEMOGLOBIN 4.9 % (0.0-5.0); BG FRACTION INSPIRED OXYGEN 100; BG HCO3 ACT 38.3 mmol/L (22.0-26.0); BG METHEMOGLOBIN 0.3 % (0.0-1.5); BG OXYGEN SATURATION 95.1 % (92.0-98.5); BG OXYHEMOGLOBIN 94.3 % (94.0-97.0); BG PCO2 54.7 mmHg (35.0-45.0); BG PH 7.463 (7.350-7.450); BG PO2 81.2 mmHg (75.0-100.0); BG SAMPLE SITE RIGHT RADIAL; BG TOTAL HEMOGLOBIN 10.4 g/dL (12.0-18.0); BG VENT MODE VENT - P/C
[2020-06-17] MEDS: LINEZOLID 600MG TABLET PO SCH ×2 (09:10→21:13)
[2020-06-17] MEDS: CHOLECALCIFEROL (D3) 1000 UNIT TABLET GT SCH (09:10)
[2020-06-17] MEDS: FAMOTIDINE 20MG TABLET GT SCH ×2 (09:11→21:10)
[2020-06-17] MEDS: ASCORBIC ACID 500 MG TABLET GT SCH ×2 (09:11→21:10)
[2020-06-17] MEDS: DOCUSATE SODIUM SUGAR FREE 100MG/10ML UDC NG PRN (09:11)
[2020-06-17] MEDS: BISACODYL 10MG SUPP PR PRN (09:11)
[2020-06-17] MEDS: ZINC SULFATE 220 MG ( 50 ) CAPSULE GT SCH (09:11)
[2020-06-17] MEDS: FLUCONAZOLE 100MG TABLET PO SCH (09:11)
[2020-06-17] MEDS: ASPIRIN 325MG TABLET GT SCH (09:11)
[2020-06-17] MEDS: INSULIN GLARGINE UD 100 UNITS/ML SYR SUBCUT SCH (09:16)
[2020-06-17] MEDS: FENTANYL CITRATE/PF 2,500 MCG in SODIUM CHLORIDE 0.9% 200 ML IV PRN (18:14)
[2020-06-17] MEDS ORDERED: ACETAMINOPHEN 650MG/20.3ML UDC GT PRN (22:15)
[2020-06-17] MEDS: ENOXAPARIN 40MG/0.4ML SYR SUBCUT SCH (22:20)
[2020-06-18] VITALS (47 sets, daily range): BP systolic 93–158; BP diastolic 48–80
[2020-06-18] MEDS: BLOOD SUGAR DIAGNOSTIC STRIP TEST SCH ×4 (00:48→17:50)
[2020-06-18] MEDS: IPRATROPIUM/ALBUTEROL 0.5-3(2.5)MG/3ML NEB HHN SCH ×4 (02:02→20:21)
[2020-06-18] MEDS: METHYLPREDNISOLONE SOD SUCC 40 MG/ML VIAL IV SCH ×3 (05:23→21:43)
[2020-06-18] MEDS: INSULIN LISPRO 100 UNITS/ML SUBCUT SCH ×4 (05:58→17:50)
[2020-06-18 06:22] LABS: CHLORIDE 100 mEq/L (98-107)
[2020-06-18 06:43] LABS: HEMATOCRIT. 32.1 % (36.0-48.0); HEMOGLOBIN. 10.6 g/dL (12.0-16.0); MEAN CORPUSCULAR HEMOGLOBIN 28.9 pg (28.0-32.0); MEAN CORPUSCULAR VOLUME 87.2 fL (81.0-99.0); MEAN PLATELET VOLUME 9.8 fl (7.4-10.4); PLATELET 229 x1000/uL (130-400); RED BLOOD CELL COUNT 3.68 mill/uL (4.2-5.4); RED CELL DISTRIBUTION WIDTH 16.5 % (11.6-14.6)
[2020-06-18] MEDS: ASPIRIN 325MG TABLET GT SCH (09:02)
[2020-06-18] MEDS: FLUCONAZOLE 100MG TABLET PO SCH (09:02)
[2020-06-18] MEDS: ZINC SULFATE 220 MG ( 50 ) CAPSULE GT SCH (09:02)
[2020-06-18] MEDS: FAMOTIDINE 20MG TABLET GT SCH ×2 (09:02→21:32)
[2020-06-18] MEDS: ASCORBIC ACID 500 MG TABLET GT SCH ×2 (09:02→21:32)
[2020-06-18] MEDS: CHOLECALCIFEROL (D3) 1000 UNIT TABLET GT SCH (09:02)
[2020-06-18] MEDS: LINEZOLID 600MG TABLET PO SCH ×2 (09:04→21:42)
[2020-06-18] MEDS: INSULIN GLARGINE UD 100 UNITS/ML SYR SUBCUT SCH (09:07)
[2020-06-18] MEDS: MIDAZOLAM HCL 100 MG in SODIUM CHLORIDE 0.9% 100 ML IV PRN (09:24)
[2020-06-18 13:16] LABS: BG BASE EXCESS 12.4 mmol/L (-2.0-2.0); BG CARBOXYHEMOGLOBIN 0.2 % (0.5-1.5); BG FRACTION INSPIRED OXYGEN 100; BG METHEMOGLOBIN 0.3 % (0.0-1.5); BG OXYHEMOGLOBIN 94.5 % (94.0-97.0); BG PCO2 54.4 mmHg (35.0-45.0); BG PH 7.462 (7.350-7.450); BG PO2 81.5 mmHg (75.0-100.0); BG SAMPLE SITE RIGHT RADIAL; BG TOTAL HEMOGLOBIN 10.8 g/dL (12.0-18.0); BG VENT MODE VENT - P/C
[2020-06-18] MEDS: FENTANYL CITRATE/PF 2,500 MCG in SODIUM CHLORIDE 0.9% 200 ML IV PRN (22:39)
[2020-06-18 22:40] LABS: PLATELET ESTIMATE NORMAL
[2020-06-18] MEDS: ENOXAPARIN 40MG/0.4ML SYR SUBCUT SCH (22:47)
[2020-06-19] VITALS (46 sets, daily range): BP systolic 102–145; BP diastolic 52–76
[2020-06-19] MEDS: BLOOD SUGAR DIAGNOSTIC STRIP TEST SCH ×5 (00:10→23:57)
[2020-06-19] MEDS: IPRATROPIUM/ALBUTEROL 0.5-3(2.5)MG/3ML NEB HHN SCH ×5 (00:34→23:46)
[2020-06-19] MEDS: MIDAZOLAM HCL 100 MG in SODIUM CHLORIDE 0.9% 100 ML IV PRN ×2 (01:04→19:41)
[2020-06-19] MEDS: METHYLPREDNISOLONE SOD SUCC 40 MG/ML VIAL IV SCH ×3 (06:33→22:23)
[2020-06-19] MEDS: INSULIN LISPRO 100 UNITS/ML SUBCUT SCH ×4 (06:43→17:34)
[2020-06-19 07:13] LABS: BG BASE EXCESS 9.9 mmol/L (-2.0-2.0); BG CARBOXYHEMOGLOBIN 0.3 % (0.5-1.5); BG HCO3 ACT 35.3 mmol/L (22.0-26.0); BG METHEMOGLOBIN 0.3 % (0.0-1.5); BG OXYHEMOGLOBIN 95.4 % (94.0-97.0); BG PCO2 51.3 mmHg (35.0-45.0); BG PH 7.455 (7.350-7.450); BG PO2 89.6 mmHg (75.0-100.0); BG SAMPLE SITE RIGHT RADIAL; BG VENT MODE VENT - P/C
[2020-06-19] MEDS: LINEZOLID 600MG TABLET PO SCH ×2 (09:12→22:30)
[2020-06-19] MEDS: INSULIN GLARGINE UD 100 UNITS/ML SYR SUBCUT SCH (09:13)
[2020-06-19] MEDS: ASPIRIN 325MG TABLET GT SCH (09:14)
[2020-06-19] MEDS: FLUCONAZOLE 100MG TABLET PO SCH (09:14)
[2020-06-19] MEDS: ASCORBIC ACID 500 MG TABLET GT SCH ×2 (09:15→22:22)
[2020-06-19] MEDS: FAMOTIDINE 20MG TABLET GT SCH ×2 (09:15→22:38)
[2020-06-19] MEDS: ZINC SULFATE 220 MG ( 50 ) CAPSULE GT SCH (09:15)
[2020-06-19] MEDS: CHOLECALCIFEROL (D3) 1000 UNIT TABLET GT SCH (09:15)
[2020-06-19] MEDS: ENOXAPARIN 40MG/0.4ML SYR SUBCUT SCH (22:22)
[2020-06-19] MEDS: FENTANYL CITRATE/PF 2,500 MCG in SODIUM CHLORIDE 0.9% 200 ML IV PRN (22:37)
[2020-06-20] VITALS (36 sets, daily range): BP systolic 98–138; BP diastolic 44–76
[2020-06-20] MEDS: INSULIN LISPRO 100 UNITS/ML SUBCUT SCH ×4 (00:06→18:58)
[2020-06-20] MEDS: IPRATROPIUM/ALBUTEROL 0.5-3(2.5)MG/3ML NEB HHN SCH ×2 (03:40→20:34)
[2020-06-20] MEDS: METHYLPREDNISOLONE SOD SUCC 40 MG/ML VIAL IV SCH ×3 (05:42→22:19)
[2020-06-20] MEDS: BLOOD SUGAR DIAGNOSTIC STRIP TEST SCH ×3 (05:42→18:59)
[2020-06-20 06:02] LABS: CHLORIDE 103 mEq/L (98-107)
[2020-06-20 06:10] LABS: PHOSPHORUS 2.8 mg/dL (2.5-4.9)
[2020-06-20 06:14] LABS: HEMATOCRIT. 32.9 % (36.0-48.0); HEMOGLOBIN. 10.7 g/dL (12.0-16.0); MEAN CORPUSCULAR HEMOGLOBIN 28.8 pg (28.0-32.0); MEAN CORPUSCULAR VOLUME 88.1 fL (81.0-99.0); MEAN PLATELET VOLUME 9.5 fl (7.4-10.4); PLATELET 228 x1000/uL (130-400); RED BLOOD CELL COUNT 3.73 mill/uL (4.2-5.4); RED CELL DISTRIBUTION WIDTH 16.5 % (11.6-14.6)
[2020-06-20] MEDS: IPRATROPIUM/ALBUTEROL 0.5-3(2.5)MG/3ML NEB HHN PRN (08:23)
[2020-06-20] MEDS: ASCORBIC ACID 500 MG TABLET GT SCH ×2 (09:10→22:19)
[2020-06-20] MEDS: CHOLECALCIFEROL (D3) 1000 UNIT TABLET GT SCH (09:10)
[2020-06-20] MEDS: ZINC SULFATE 220 MG ( 50 ) CAPSULE GT SCH (09:10)
[2020-06-20] MEDS: FAMOTIDINE 20MG TABLET GT SCH ×2 (09:10→22:19)
[2020-06-20] MEDS: ASPIRIN 325MG TABLET GT SCH (09:10)
[2020-06-20] MEDS: LINEZOLID 600MG TABLET PO SCH (09:12)
[2020-06-20] MEDS: INSULIN GLARGINE UD 100 UNITS/ML SYR SUBCUT SCH (09:15)
[2020-06-20 10:03] LABS: BG BASE EXCESS 8.8 mmol/L (-2.0-2.0); BG CARBOXYHEMOGLOBIN 0.5 % (0.5-1.5); BG DEOXYHEMOGLOBIN 7.5 % (0.0-5.0); BG FRACTION INSPIRED OXYGEN 75; BG HCO3 ACT 33.5 mmol/L (22.0-26.0); BG METHEMOGLOBIN 0.3 % (0.0-1.5); BG OXYGEN SATURATION 92.4 % (92.0-98.5); BG OXYHEMOGLOBIN 91.7 % (94.0-97.0); BG PH 7.471 (7.350-7.450); BG PO2 67.6 mmHg (75.0-100.0); BG SAMPLE SITE RIGHT RADIAL; BG TOTAL HEMOGLOBIN 10.7 g/dL (12.0-18.0); BG VENT MODE VENT - P/C
[2020-06-20] MEDS: MIDAZOLAM HCL 100 MG in SODIUM CHLORIDE 0.9% 100 ML IV PRN (13:40)
[2020-06-20 13:42] LABS: PLATELET ESTIMATE NORMAL
[2020-06-20] MEDS: ENOXAPARIN 40MG/0.4ML SYR SUBCUT SCH (22:19)
[2020-06-21] VITALS (48 sets, daily range): BP systolic 89–216; BP diastolic 46–95
[2020-06-21] MEDS: BLOOD SUGAR DIAGNOSTIC STRIP TEST SCH ×5 (00:12→23:57)
[2020-06-21] MEDS: FENTANYL CITRATE/PF 2,500 MCG in SODIUM CHLORIDE 0.9% 200 ML IV PRN (01:38)
[2020-06-21] MEDS: IPRATROPIUM/ALBUTEROL 0.5-3(2.5)MG/3ML NEB HHN SCH ×4 (02:35→20:29)
[2020-06-21] MEDS: INSULIN LISPRO 100 UNITS/ML SUBCUT SCH ×5 (05:36→23:57)
[2020-06-21] MEDS: METHYLPREDNISOLONE SOD SUCC 40 MG/ML VIAL IV SCH ×3 (05:41→21:40)
[2020-06-21 05:43] LABS: HEMATOCRIT. 28.8 % (36.0-48.0); HEMOGLOBIN. 9.5 g/dL (12.0-16.0); MEAN CORPUSCULAR VOLUME 87.8 fL (81.0-99.0); MEAN PLATELET VOLUME 9.1 fl (7.4-10.4); PLATELET 211 x1000/uL (130-400); RED BLOOD CELL COUNT 3.28 mill/uL (4.2-5.4); RED CELL DISTRIBUTION WIDTH 16.2 % (11.6-14.6)
[2020-06-21 06:11] LABS: CHLORIDE 106 mEq/L (98-107)
[2020-06-21 06:16] LABS: PHOSPHORUS 3.5 mg/dL (2.5-4.9)
[2020-06-21] MEDS: ZINC SULFATE 220 MG ( 50 ) CAPSULE GT SCH (09:00)
[2020-06-21] MEDS: FAMOTIDINE 20MG TABLET GT SCH ×2 (09:00→21:40)
[2020-06-21 09:32] LABS: BG BASE EXCESS 8.6 mmol/L (-2.0-2.0); BG CARBOXYHEMOGLOBIN 0.5 % (0.5-1.5); BG DEOXYHEMOGLOBIN 14.1 % (0.0-5.0); BG HCO3 ACT 32.8 mmol/L (22.0-26.0); BG METHEMOGLOBIN 0.3 % (0.0-1.5); BG OXYGEN SATURATION 85.8 % (92.0-98.5); BG OXYHEMOGLOBIN 85.1 % (94.0-97.0); BG PCO2 43.9 mmHg (35.0-45.0); BG PH 7.491 (7.350-7.450); BG PO2 48.3 mmHg (75.0-100.0); BG SAMPLE SITE LEFT RADIAL; BG TOTAL HEMOGLOBIN 10.3 g/dL (12.0-18.0); BG VENT MODE VENT - P/C
[2020-06-21] MEDS: ASCORBIC ACID 500 MG TABLET GT SCH ×2 (10:24→21:40)
[2020-06-21] MEDS: ASPIRIN 325MG TABLET GT SCH (10:24)
[2020-06-21] MEDS: CHOLECALCIFEROL (D3) 1000 UNIT TABLET GT SCH (10:24)
[2020-06-21] MEDS: INSULIN GLARGINE UD 100 UNITS/ML SYR SUBCUT SCH (10:55)
[2020-06-21] MEDS: NOREPINEPHRINE 32 MG in DEXT 5% WATER 218 ML IV PRN (14:46)
[2020-06-21 21:33] LABS: CLARITY URINE TURBID (CLEAR); COLOR URINE RED (YELLOW); KETONES URINE 2+ (NEGATIVE); LEUKOCYTE ESTERASE URINE 3+ (NEGATIVE); NITRITE URINE POSITIVE (NEGATIVE); OCCULT BLOOD URINE 3+ (NEGATIVE); PH URINE 5.5 (4.5-8.0); PROTEIN URINE 2+ (NEGATIVE); SPECIFIC GRAVITY URINE 1.025 (1.005-1.030)
[2020-06-21 22:59] LABS: PLATELET ESTIMATE NORMAL
[2020-06-22] VITALS (53 sets, daily range): BP systolic 95–168; BP diastolic 39–72
[2020-06-22] MEDS: ENOXAPARIN 40MG/0.4ML SYR SUBCUT SCH ×2 (00:07→22:42)
[2020-06-22] MEDS: MIDAZOLAM HCL 100 MG in SODIUM CHLORIDE 0.9% 80 ML IV PRN (01:23)
[2020-06-22] MEDS: FENTANYL CITRATE/PF 2,500 MCG in SODIUM CHLORIDE 0.9% 200 ML IV PRN (05:34)
[2020-06-22 05:36] LABS: CHLORIDE 107 mEq/L (98-107)
[2020-06-22] MEDS: INSULIN LISPRO 100 UNITS/ML SUBCUT SCH ×3 (05:50→18:00)
[2020-06-22] MEDS: METHYLPREDNISOLONE SOD SUCC 40 MG/ML VIAL IV SCH ×3 (05:50→22:42)
[2020-06-22] MEDS: BLOOD SUGAR DIAGNOSTIC STRIP TEST SCH ×3 (05:51→18:23)
[2020-06-22 06:38] LABS: HEMATOCRIT. 28.9 % (36.0-48.0); HEMOGLOBIN. 9.5 g/dL (12.0-16.0); MEAN CORPUSCULAR HEMOGLOBIN 28.8 pg (28.0-32.0); MEAN CORPUSCULAR VOLUME 87.5 fL (81.0-99.0); PLATELET 230 x1000/uL (130-400); RED CELL DISTRIBUTION WIDTH 16.6 % (11.6-14.6)
[2020-06-22 08:41] LABS: BG BASE EXCESS 8.7 mmol/L (-2.0-2.0); BG CARBOXYHEMOGLOBIN 0.2 % (0.5-1.5); BG DEOXYHEMOGLOBIN 3.1 % (0.0-5.0); BG FRACTION INSPIRED OXYGEN 100; BG HCO3 ACT 33.1 mmol/L (22.0-26.0); BG METHEMOGLOBIN 0.3 % (0.0-1.5); BG OXYGEN SATURATION 96.9 % (92.0-98.5); BG OXYHEMOGLOBIN 96.4 % (94.0-97.0); BG PCO2 45.1 mmHg (35.0-45.0); BG PH 7.483 (7.350-7.450); BG PO2 95.7 mmHg (75.0-100.0); BG SAMPLE SITE RIGHT RADIAL; BG TOTAL HEMOGLOBIN 9.5 g/dL (12.0-18.0); BG VENT MODE VENT - P/C
[2020-06-22] MEDS: IPRATROPIUM/ALBUTEROL 0.5-3(2.5)MG/3ML NEB HHN SCH ×3 (09:02→20:22)
[2020-06-22] MEDS: ZINC SULFATE 220 MG ( 50 ) CAPSULE GT SCH (09:48)
[2020-06-22] MEDS: CHOLECALCIFEROL (D3) 1000 UNIT TABLET GT SCH (09:48)
[2020-06-22] MEDS: ASPIRIN 325MG TABLET GT SCH (09:48)
[2020-06-22] MEDS: ASCORBIC ACID 500 MG TABLET GT SCH ×2 (09:48→21:08)
[2020-06-22] MEDS: FAMOTIDINE 20MG TABLET GT SCH ×2 (09:48→21:07)
[2020-06-22] MEDS: INSULIN GLARGINE UD 100 UNITS/ML SYR SUBCUT SCH (09:49)
[2020-06-22 14:16] LABS: PLATELET ESTIMATE NORMAL
[2020-06-23] VITALS (89 sets, daily range): BP systolic 91–134; BP diastolic 48–72
[2020-06-23] MEDS: IPRATROPIUM/ALBUTEROL 0.5-3(2.5)MG/3ML NEB HHN SCH ×4 (00:29→20:11)
[2020-06-23] MEDS: METHYLPREDNISOLONE SOD SUCC 40 MG/ML VIAL IV SCH ×3 (05:49→22:19)
[2020-06-23] MEDS: MIDAZOLAM HCL 100 MG in SODIUM CHLORIDE 0.9% 80 ML IV PRN (08:04)
[2020-06-23] MEDS: FENTANYL CITRATE/PF 2,500 MCG in SODIUM CHLORIDE 0.9% 200 ML IV PRN (08:30)
[2020-06-23 08:46] LABS: BG BASE EXCESS 7.6 mmol/L (-2.0-2.0); BG CARBOXYHEMOGLOBIN 0.3 % (0.5-1.5); BG FRACTION INSPIRED OXYGEN 100; BG HCO3 ACT 32.4 mmol/L (22.0-26.0); BG METHEMOGLOBIN 0.3 % (0.0-1.5); BG OXYHEMOGLOBIN 96.4 % (94.0-97.0); BG PCO2 47.7 mmHg (35.0-45.0); BG PO2 104.4 mmHg (75.0-100.0); BG SAMPLE SITE RIGHT RADIAL; BG TOTAL HEMOGLOBIN 8.9 g/dL (12.0-18.0); BG VENT MODE VENT - P/C
[2020-06-23] MEDS: CHOLECALCIFEROL (D3) 1000 UNIT TABLET GT SCH (09:00)
[2020-06-23] MEDS: ASPIRIN 325MG TABLET GT SCH (09:00)
[2020-06-23] MEDS: ZINC SULFATE 220 MG ( 50 ) CAPSULE GT SCH (09:39)
[2020-06-23] MEDS: ASCORBIC ACID 500 MG TABLET GT SCH (09:39)
[2020-06-23] MEDS: FAMOTIDINE 20MG TABLET GT SCH (09:39)
[2020-06-23] MEDS: INSULIN GLARGINE UD 100 UNITS/ML SYR SUBCUT SCH (09:41)
[2020-06-23] MEDS: BLOOD SUGAR DIAGNOSTIC STRIP TEST SCH (18:00)
[2020-06-23] MEDS: INSULIN LISPRO 100 UNITS/ML SUBCUT SCH (19:08)
[2020-06-24] VITALS (54 sets, daily range): BP systolic 94–141; BP diastolic 48–69
[2020-06-24] MEDS: BLOOD SUGAR DIAGNOSTIC STRIP TEST SCH ×4 (00:35→18:00)
[2020-06-24] MEDS: MIDAZOLAM HCL 100 MG in SODIUM CHLORIDE 0.9% 80 ML IV PRN (00:36)
[2020-06-24] MEDS: IPRATROPIUM/ALBUTEROL 0.5-3(2.5)MG/3ML NEB HHN SCH ×4 (02:23→19:55)
[2020-06-24 05:35] LABS: CHLORIDE 106 mEq/L (98-107)
[2020-06-24] MEDS: INSULIN LISPRO 100 UNITS/ML SUBCUT SCH ×4 (05:42→18:00)
[2020-06-24] MEDS: METHYLPREDNISOLONE SOD SUCC 40 MG/ML VIAL IV SCH ×3 (05:42→21:36)
[2020-06-24 05:50] LABS: PHOSPHORUS 2.8 mg/dL (2.5-4.9)
[2020-06-24 06:17] LABS: HEMATOCRIT. 26.4 % (36.0-48.0); HEMOGLOBIN. 8.7 g/dL (12.0-16.0); MEAN CORPUSCULAR HEMOGLOBIN 29.3 pg (28.0-32.0); MEAN CORPUSCULAR VOLUME 88.7 fL (81.0-99.0); MEAN PLATELET VOLUME 9.1 fl (7.4-10.4); PLATELET 197 x1000/uL (130-400); RED BLOOD CELL COUNT 2.97 mill/uL (4.2-5.4); RED CELL DISTRIBUTION WIDTH 16.5 % (11.6-14.6)
[2020-06-24] MEDS ORDERED: MAGNESIUM 1 G PREMIX 100 ML IV ONE (10:00)
[2020-06-24] MEDS: INSULIN GLARGINE UD 100 UNITS/ML SYR SUBCUT SCH (10:00)
[2020-06-24 10:13] LABS: BG BASE EXCESS 3.7 mmol/L (-2.0-2.0); BG CARBOXYHEMOGLOBIN 0.3 % (0.5-1.5); BG DEOXYHEMOGLOBIN 4.6 % (0.0-5.0); BG FRACTION INSPIRED OXYGEN 95; BG HCO3 ACT 27.3 mmol/L (22.0-26.0); BG METHEMOGLOBIN 0.3 % (0.0-1.5); BG OXYGEN SATURATION 95.4 % (92.0-98.5); BG OXYHEMOGLOBIN 94.8 % (94.0-97.0); BG PCO2 37.1 mmHg (35.0-45.0); BG PH 7.484 (7.350-7.450); BG PO2 79.6 mmHg (75.0-100.0); BG SAMPLE SITE RIGHT RADIAL; BG TOTAL HEMOGLOBIN 9.9 g/dL (12.0-18.0); BG VENT MODE VENT - P/C
[2020-06-24 10:30] LABS: PLATELET ESTIMATE NORMAL
[2020-06-24] MEDS: ASCORBIC ACID 500 MG TABLET NG SCH (11:31)
[2020-06-24] MEDS: ZINC SULFATE 220 MG ( 50 ) CAPSULE NG SCH (11:31)
[2020-06-24] MEDS: FENTANYL CITRATE/PF 2,500 MCG in SODIUM CHLORIDE 0.9% 200 ML IV PRN (17:59)
[2020-06-25] VITALS (40 sets, daily range): BP systolic 92–121; BP diastolic 49–65
[2020-06-25] MEDS: IPRATROPIUM/ALBUTEROL 0.5-3(2.5)MG/3ML NEB HHN SCH ×4 (01:58→20:21)
[2020-06-25] MEDS: MIDAZOLAM HCL 100 MG in SODIUM CHLORIDE 0.9% 80 ML IV PRN (04:48)
[2020-06-25] MEDS: INSULIN LISPRO 100 UNITS/ML SUBCUT SCH ×5 (06:00→23:09)
[2020-06-25] MEDS: METHYLPREDNISOLONE SOD SUCC 40 MG/ML VIAL IV SCH ×3 (06:27→23:08)
[2020-06-25] MEDS: BLOOD SUGAR DIAGNOSTIC STRIP TEST SCH ×5 (06:27→23:09)
[2020-06-25 07:38] LABS: HEMATOCRIT. 25.6 % (36.0-48.0); HEMOGLOBIN. 8.5 g/dL (12.0-16.0); MEAN CORPUSCULAR HEMOGLOBIN 29.1 pg (28.0-32.0); MEAN CORPUSCULAR VOLUME 87.5 fL (81.0-99.0); MEAN PLATELET VOLUME 9.1 fl (7.4-10.4); PLATELET 199 x1000/uL (130-400); RED BLOOD CELL COUNT 2.92 mill/uL (4.2-5.4); RED CELL DISTRIBUTION WIDTH 16.3 % (11.6-14.6)
[2020-06-25 08:07] LABS: CHLORIDE 108 mEq/L (98-107)
[2020-06-25 08:12] LABS: PHOSPHORUS 2.7 mg/dL (2.5-4.9)
[2020-06-25 08:55] LABS: BG BASE EXCESS 3.8 mmol/L (-2.0-2.0); BG CARBOXYHEMOGLOBIN 0.4 % (0.5-1.5); BG FRACTION INSPIRED OXYGEN 95; BG HCO3 ACT 27.3 mmol/L (22.0-26.0); BG METHEMOGLOBIN 0.3 % (0.0-1.5); BG OXYHEMOGLOBIN 92.3 % (94.0-97.0); BG PCO2 36.7 mmHg (35.0-45.0); BG PO2 62.6 mmHg (75.0-100.0); BG SAMPLE SITE RIGHT RADIAL; BG TOTAL HEMOGLOBIN 8.8 g/dL (12.0-18.0); BG VENT MODE VENT - P/C
[2020-06-25] MEDS: ASCORBIC ACID 500 MG TABLET NG SCH (09:00)
[2020-06-25] MEDS: ZINC SULFATE 220 MG ( 50 ) CAPSULE NG SCH (09:00)
[2020-06-25] MEDS: INSULIN GLARGINE UD 100 UNITS/ML SYR SUBCUT SCH (10:12)
[2020-06-25 12:59] LABS: PLATELET ESTIMATE NORMAL
[2020-06-25] MEDS ORDERED: MIDAZOLAM 100MG/100ML PMX 100 ML IV PRN (15:00)
[2020-06-26] VITALS (51 sets, daily range): BP systolic 80–149; BP diastolic 45–80
[2020-06-26] MEDS: FENTANYL CITRATE/PF 2,500 MCG in SODIUM CHLORIDE 0.9% 200 ML IV PRN (00:37)
[2020-06-26] MEDS: IPRATROPIUM/ALBUTEROL 0.5-3(2.5)MG/3ML NEB HHN SCH ×4 (01:49→21:41)
[2020-06-26 05:42] LABS: CHLORIDE 103 mEq/L (98-107)
[2020-06-26] MEDS: METHYLPREDNISOLONE SOD SUCC 40 MG/ML VIAL IV SCH ×2 (05:48→14:14)
[2020-06-26 05:49] LABS: HEMATOCRIT. 24.9 % (36.0-48.0); HEMOGLOBIN. 8.5 g/dL (12.0-16.0); MEAN CORPUSCULAR HEMOGLOBIN 30.2 pg (28.0-32.0); MEAN CORPUSCULAR VOLUME 88.1 fL (81.0-99.0); MEAN PLATELET VOLUME 9.5 fl (7.4-10.4); PLATELET 197 x1000/uL (130-400); RED BLOOD CELL COUNT 2.83 mill/uL (4.2-5.4); RED CELL DISTRIBUTION WIDTH 16.8 % (11.6-14.6)
[2020-06-26] MEDS: BLOOD SUGAR DIAGNOSTIC STRIP TEST SCH ×3 (05:49→17:18)
[2020-06-26] MEDS: INSULIN LISPRO 100 UNITS/ML SUBCUT SCH ×3 (05:49→17:18)
[2020-06-26] MEDS ORDERED: MIDAZOLAM 100MG/100ML PMX 100 ML IV PRN (07:30)
[2020-06-26] MEDS: ASCORBIC ACID 500 MG TABLET NG SCH (09:05)
[2020-06-26] MEDS: ZINC SULFATE 220 MG ( 50 ) CAPSULE NG SCH (09:05)
[2020-06-26] MEDS: INSULIN GLARGINE UD 100 UNITS/ML SYR SUBCUT SCH (09:07)
[2020-06-26 09:24] LABS: BG CARBOXYHEMOGLOBIN 0.7 % (0.5-1.5); BG DEOXYHEMOGLOBIN 11.6 % (0.0-5.0); BG FRACTION INSPIRED OXYGEN 95; BG HCO3 ACT 28.9 mmol/L (22.0-26.0); BG METHEMOGLOBIN 0.1 % (0.0-1.5); BG OXYGEN SATURATION 88.3 % (92.0-98.5); BG OXYHEMOGLOBIN 87.6 % (94.0-97.0); BG PCO2 39.8 mmHg (35.0-45.0); BG PH 7.479 (7.350-7.450); BG SAMPLE SITE RIGHT RADIAL; BG TOTAL HEMOGLOBIN 9.4 g/dL (12.0-18.0); BG VENT MODE VENT - P/C
[2020-06-26] MEDS: MIDAZOLAM HCL 100 MG in SODIUM CHLORIDE 0.9% 100 ML IV PRN (10:23)
[2020-06-26] MEDS: MIDODRINE HCL 5MG TABLET PO SCH (17:18)
[2020-06-26 20:29] LABS: PLATELET ESTIMATE NORMAL
[2020-06-27] VITALS (78 sets, daily range): BP systolic 71–145; BP diastolic 36–77
[2020-06-27] MEDS: INSULIN LISPRO 100 UNITS/ML SUBCUT SCH ×4 (00:20→18:36)
[2020-06-27] MEDS: BLOOD SUGAR DIAGNOSTIC STRIP TEST SCH ×4 (00:20→18:35)
[2020-06-27] MEDS: IPRATROPIUM/ALBUTEROL 0.5-3(2.5)MG/3ML NEB HHN SCH ×4 (01:54→20:36)
[2020-06-27] MEDS: METHYLPREDNISOLONE SOD SUCC 40 MG/ML VIAL IV SCH ×2 (02:56→14:00)
[2020-06-27] MEDS: MIDAZOLAM HCL 100 MG in SODIUM CHLORIDE 0.9% 100 ML IV PRN ×2 (03:05→17:05)
[2020-06-27] MEDS: FENTANYL CITRATE/PF 2,500 MCG in SODIUM CHLORIDE 0.9% 200 ML IV PRN ×2 (03:06→17:04)
[2020-06-27 04:30] LABS: HEMATOCRIT. 26.1 % (36.0-48.0); HEMOGLOBIN. 8.5 g/dL (12.0-16.0); MEAN CORPUSCULAR HEMOGLOBIN 29.2 pg (28.0-32.0); MEAN CORPUSCULAR VOLUME 89.6 fL (81.0-99.0); MEAN PLATELET VOLUME 9.6 fl (7.4-10.4); PLATELET 202 x1000/uL (130-400); RED BLOOD CELL COUNT 2.92 mill/uL (4.2-5.4); RED CELL DISTRIBUTION WIDTH 17.7 % (11.6-14.6)
[2020-06-27 04:35] LABS: CHLORIDE 103 mEq/L (98-107)
[2020-06-27 04:42] LABS: PHOSPHORUS 2.5 mg/dL (2.5-4.9)
[2020-06-27 08:07] LABS: PLATELET ESTIMATE NORMAL
[2020-06-27 08:52] LABS: BG BASE EXCESS 6.3 mmol/L (-2.0-2.0); BG CARBOXYHEMOGLOBIN 0.8 % (0.5-1.5); BG DEOXYHEMOGLOBIN 7.5 % (0.0-5.0); BG HCO3 ACT 30.7 mmol/L (22.0-26.0); BG METHEMOGLOBIN 0.3 % (0.0-1.5); BG OXYGEN SATURATION 92.4 % (92.0-98.5); BG OXYHEMOGLOBIN 91.4 % (94.0-97.0); BG PCO2 43.4 mmHg (35.0-45.0); BG PH 7.467 (7.350-7.450); BG PO2 67.6 mmHg (75.0-100.0); BG SAMPLE SITE RIGHT RADIAL; BG TOTAL HEMOGLOBIN 8.2 g/dL (12.0-18.0); BG VENT MODE VENT - P/C
[2020-06-27] MEDS: MIDODRINE HCL 5MG TABLET PO SCH ×3 (09:34→17:03)
[2020-06-27] MEDS: ZINC SULFATE 220 MG ( 50 ) CAPSULE NG SCH (09:35)
[2020-06-27] MEDS: ASCORBIC ACID 500 MG TABLET NG SCH (09:35)
[2020-06-27] MEDS: INSULIN GLARGINE UD 100 UNITS/ML SYR SUBCUT SCH (09:37)
[2020-06-27] MEDS: MAGNESIUM 1 G PREMIX 100 ML IV PRN ×2 (10:12→10:14)
[2020-06-27] MEDS ORDERED: MAGNESIUM 2 G PREMIX 50 ML IV SCH (11:00)
[2020-06-27] MEDS ORDERED: POTASSIUM CHLORIDE INJ 40 MEQ in DEXT 5% WATER 250 ML IV SCH (11:00)
[2020-06-28] VITALS (73 sets, daily range): BP systolic 83–166; BP diastolic 45–83
[2020-06-28] MEDS: BLOOD SUGAR DIAGNOSTIC STRIP TEST SCH ×4 (00:17→18:07)
[2020-06-28] MEDS: INSULIN LISPRO 100 UNITS/ML SUBCUT SCH ×4 (00:30→18:52)
[2020-06-28] MEDS: IPRATROPIUM/ALBUTEROL 0.5-3(2.5)MG/3ML NEB HHN SCH ×4 (02:06→19:46)
[2020-06-28] MEDS: FENTANYL CITRATE/PF 2,500 MCG in SODIUM CHLORIDE 0.9% 200 ML IV PRN ×2 (04:29→15:30)
[2020-06-28 05:07] LABS: HEMATOCRIT. 26.6 % (36.0-48.0); HEMOGLOBIN. 8.7 g/dL (12.0-16.0); MEAN CORPUSCULAR HEMOGLOBIN 29.5 pg (28.0-32.0); MEAN CORPUSCULAR VOLUME 89.9 fL (81.0-99.0); MEAN PLATELET VOLUME 9.7 fl (7.4-10.4); PLATELET 227 x1000/uL (130-400); RED BLOOD CELL COUNT 2.96 mill/uL (4.2-5.4); RED CELL DISTRIBUTION WIDTH 18.1 % (11.6-14.6)
[2020-06-28 05:15] LABS: CHLORIDE 106 mEq/L (98-107)
[2020-06-28 05:24] LABS: PHOSPHORUS 2.1 mg/dL (2.5-4.9)
[2020-06-28] MEDS: MIDAZOLAM HCL 100 MG in SODIUM CHLORIDE 0.9% 100 ML IV PRN ×2 (06:06→15:33)
[2020-06-28] MEDS ORDERED: POTASSIUM PHOS,M-BASIC-D-BASIC 15 MMOL in DEXT 5% WATER 245 ML IV ONE (07:30)
[2020-06-28] MEDS: ZINC SULFATE 220 MG ( 50 ) CAPSULE NG SCH (09:00)
[2020-06-28] MEDS: ASCORBIC ACID 500 MG TABLET NG SCH (09:05)
[2020-06-28] MEDS: MIDODRINE HCL 5MG TABLET PO SCH ×3 (09:07→17:00)
[2020-06-28] MEDS: DOCUSATE SODIUM SUGAR FREE 100MG/10ML UDC NG PRN (09:07)
[2020-06-28] MEDS: INSULIN GLARGINE UD 100 UNITS/ML SYR SUBCUT SCH (09:08)
[2020-06-28 13:43] LABS: PLATELET ESTIMATE NORMAL
[2020-06-28] MEDS: ACETAMINOPHEN 650MG/20.3ML UDC GT PRN (21:24)
[2020-06-28] MEDS: MAGNESIUM 1 G PREMIX 100 ML IV PRN (23:16)
[2020-06-29] VITALS (82 sets, daily range): BP systolic 81–111; BP diastolic 48–67
[2020-06-29] MEDS: INSULIN LISPRO 100 UNITS/ML SUBCUT SCH ×4 (00:01→18:00)
[2020-06-29] MEDS: FENTANYL CITRATE/PF 2,500 MCG in SODIUM CHLORIDE 0.9% 200 ML IV PRN ×2 (01:31→15:18)
[2020-06-29] MEDS: IPRATROPIUM/ALBUTEROL 0.5-3(2.5)MG/3ML NEB HHN SCH ×4 (01:40→20:37)
[2020-06-29] MEDS: MIDAZOLAM HCL 100 MG in SODIUM CHLORIDE 0.9% 100 ML IV PRN ×2 (03:38→15:06)
[2020-06-29 05:01] LABS: HEMATOCRIT. 23.4 % (36.0-48.0); HEMOGLOBIN. 7.7 g/dL (12.0-16.0); MEAN CORPUSCULAR HEMOGLOBIN 29.5 pg (28.0-32.0); MEAN PLATELET VOLUME 9.6 fl (7.4-10.4); PLATELET 203 x1000/uL (130-400); RED CELL DISTRIBUTION WIDTH 18.3 % (11.6-14.6)
[2020-06-29 05:13] LABS: CHLORIDE 105 mEq/L (98-107)
[2020-06-29 05:18] LABS: PHOSPHORUS 3.3 mg/dL (2.5-4.9)
[2020-06-29] MEDS: BLOOD SUGAR DIAGNOSTIC STRIP TEST SCH ×4 (06:21→18:29)
[2020-06-29] MEDS: ZINC SULFATE 220 MG ( 50 ) CAPSULE NG SCH (09:41)
[2020-06-29] MEDS: ASCORBIC ACID 500 MG TABLET NG SCH (09:41)
[2020-06-29] MEDS: MIDODRINE HCL 5MG TABLET PO SCH ×3 (09:41→16:52)
[2020-06-29] MEDS: DOCUSATE SODIUM SUGAR FREE 100MG/10ML UDC NG PRN (09:41)
[2020-06-29] MEDS: INSULIN GLARGINE UD 100 UNITS/ML SYR SUBCUT SCH (09:43)
[2020-06-29] MEDS ORDERED: POTASSIUM CHLORIDE INJ 40 MEQ in DEXT 5% WATER 250 ML IV SCH (10:00)
[2020-06-29 11:32] LABS: PLATELET ESTIMATE NORMAL
[2020-06-30] VITALS (99 sets, daily range): BP systolic 76–193; BP diastolic 31–112
[2020-06-30] MEDS: MIDAZOLAM HCL 100 MG in SODIUM CHLORIDE 0.9% 100 ML IV PRN ×3 (00:04→14:51)
[2020-06-30] MEDS: IPRATROPIUM/ALBUTEROL 0.5-3(2.5)MG/3ML NEB HHN SCH ×4 (00:34→20:54)
[2020-06-30] MEDS: ACETAMINOPHEN 650MG/20.3ML UDC GT PRN (01:23)
[2020-06-30] MEDS: DEXTROSE 50% WATER 50ML SYRINGE IV PRN (01:24)
[2020-06-30] MEDS: FENTANYL CITRATE/PF 2,500 MCG in SODIUM CHLORIDE 0.9% 200 ML IV PRN ×3 (01:24→14:52)
[2020-06-30] MEDS: LACTULOSE 20G/30ML UDC GT PRN (01:27)
[2020-06-30] MEDS: PHENYLEPHRINE 100 MG in DEXT 5% WATER 240 ML IV PRN ×3 (05:05→22:32)
[2020-06-30 05:50] LABS: HEMATOCRIT. 22.4 % (36.0-48.0); HEMOGLOBIN. 7.3 g/dL (12.0-16.0); MEAN CORPUSCULAR HEMOGLOBIN 29.4 pg (28.0-32.0); MEAN CORPUSCULAR VOLUME 90.9 fL (81.0-99.0); MEAN PLATELET VOLUME 9.7 fl (7.4-10.4); PLATELET 202 x1000/uL (130-400); RED BLOOD CELL COUNT 2.47 mill/uL (4.2-5.4); RED CELL DISTRIBUTION WIDTH 18.1 % (11.6-14.6)
[2020-06-30 05:55] LABS: CHLORIDE 107 mEq/L (98-107)
[2020-06-30] MEDS: INSULIN LISPRO 100 UNITS/ML SUBCUT SCH ×5 (06:00→23:54)
[2020-06-30 06:05] LABS: PHOSPHORUS 4.2 mg/dL (2.5-4.9)
[2020-06-30] MEDS: BLOOD SUGAR DIAGNOSTIC STRIP TEST SCH ×5 (06:21→23:16)
[2020-06-30] MEDS ORDERED: FUROSEMIDE 40MG/4ML VIAL IVP NR (08:15)
[2020-06-30 08:29] LABS: NUCLEATED RED BLOOD CELLS 3 /100 WBC
[2020-06-30 08:30] LABS: PLATELET ESTIMATE NORMAL
[2020-06-30] MEDS: MIDODRINE HCL 5MG TABLET PO SCH ×3 (09:18→18:54)
[2020-06-30] MEDS: DOCUSATE SODIUM SUGAR FREE 100MG/10ML UDC NG PRN (09:18)
[2020-06-30] MEDS: ZINC SULFATE 220 MG ( 50 ) CAPSULE NG SCH (09:18)
[2020-06-30] MEDS: ASCORBIC ACID 500 MG TABLET NG SCH (09:19)
[2020-06-30] MEDS: INSULIN GLARGINE UD 100 UNITS/ML SYR SUBCUT SCH (10:00)
[2020-06-30 11:22] LABS: BG BASE EXCESS 2.3 mmol/L (-2.0-2.0); BG CARBOXYHEMOGLOBIN 1.8 % (0.5-1.5); BG FRACTION INSPIRED OXYGEN 100; BG HCO3 ACT 28.7 mmol/L (22.0-26.0); BG METHEMOGLOBIN 0.2 % (0.0-1.5); BG OXYGEN SATURATION 85.7 % (92.0-98.5); BG PCO2 54.5 mmHg (35.0-45.0); BG PO2 53.8 mmHg (75.0-100.0); BG SAMPLE SITE RIGHT RADIAL; BG TOTAL HEMOGLOBIN 9.5 g/dL (12.0-18.0); BG VENT MODE VENT - AC
[2020-06-30] MEDS: NOREPINEPHRINE 32 MG in DEXT 5% WATER 218 ML IV PRN (19:06)
[2020-06-30] MEDS ORDERED: MIDAZOLAM HCL 100 MG in SODIUM CHLORIDE 0.9% 80 ML IV PRN (22:30)
[2020-06-30] MEDS ORDERED: PROPOFOL 10MG/ML 100ML 100 ML IV PRN (22:30)
[2020-06-30] MEDS ORDERED: FENTANYL CITRATE/PF 2,500 MCG in SODIUM CHLORIDE 0.9% 200 ML IV PRN (22:30)
[2020-07-01] VITALS (100 sets, daily range): BP systolic 58–231; BP diastolic 15–113
[2020-07-01 02:41] LABS: BG BASE EXCESS -14.2 mmol/L (-2.0-2.0); BG CARBOXYHEMOGLOBIN 1.8 % (0.5-1.5); BG DEOXYHEMOGLOBIN 30.6 % (0.0-5.0); BG FRACTION INSPIRED OXYGEN 100; BG METHEMOGLOBIN 0.3 % (0.0-1.5); BG OXYGEN SATURATION 68.7 % (92.0-98.5); BG OXYHEMOGLOBIN 67.3 % (94.0-97.0); BG PCO2 71.4 mmHg (35.0-45.0); BG PH 6.995 (7.350-7.450); BG PO2 47.4 mmHg (75.0-100.0); BG SAMPLE SITE RIGHT RADIAL; BG TOTAL HEMOGLOBIN 9.5 g/dL (12.0-18.0); BG VENT MODE VENT - P/C
[2020-07-01] MEDS: VASOPRESSIN 20 UNIT in SODIUM CHLORIDE 0.9% 99 ML IV PRN ×3 (03:13→19:00)
[2020-07-01] MEDS: IPRATROPIUM/ALBUTEROL 0.5-3(2.5)MG/3ML NEB HHN SCH ×2 (03:18→08:35)
[2020-07-01] MEDS: INSULIN LISPRO 100 UNITS/ML SUBCUT SCH ×3 (05:23→18:00)
[2020-07-01] MEDS: PHENYLEPHRINE 100 MG in DEXT 5% WATER 240 ML IV PRN ×2 (06:00→14:32)
[2020-07-01] MEDS: BLOOD SUGAR DIAGNOSTIC STRIP TEST SCH ×3 (06:01→18:27)
[2020-07-01 06:04] LABS: CHLORIDE 101 mEq/L (98-107)
[2020-07-01 06:16] LABS: PHOSPHORUS 7.9 mg/dL (2.5-4.9)
[2020-07-01 06:18] LABS: CREATINE KINASE 207 IU/L (26-192)
[2020-07-01] MEDS ORDERED: SODIUM POLYSTYRENE SULFONATE 15 G/60 ML BOT PO NR (08:00)
[2020-07-01 08:03] LABS: BG CARBOXYHEMOGLOBIN 1.9 % (0.5-1.5); BG DEOXYHEMOGLOBIN 30.9 % (0.0-5.0); BG FRACTION INSPIRED OXYGEN 100; BG HCO3 ACT 16.8 mmol/L (22.0-26.0); BG METHEMOGLOBIN 0.1 % (0.0-1.5); BG OXYGEN SATURATION 68.5 % (92.0-98.5); BG OXYHEMOGLOBIN 67.1 % (94.0-97.0); BG PCO2 59.9 mmHg (35.0-45.0); BG PH 7.067 (7.350-7.450); BG PO2 42.9 mmHg (75.0-100.0); BG SAMPLE SITE RIGHT RADIAL; BG TOTAL HEMOGLOBIN 9.2 g/dL (12.0-18.0); BG TOTAL RESPIRATORY RATE 30 b/min; BG VENT MODE VENT - P/C
[2020-07-01] MEDS ORDERED: SODIUM BICARBONATE 8.4% 1 MEQ/ML 50ML SYR IV SCH (08:15)
[2020-07-01] MEDS: NOREPINEPHRINE 32 MG in DEXT 5% WATER 218 ML IV PRN ×2 (08:19→17:17)
[2020-07-01] MEDS: ZINC SULFATE 220 MG ( 50 ) CAPSULE NG SCH (08:20)
[2020-07-01] MEDS: ASCORBIC ACID 500 MG TABLET NG SCH (08:20)
[2020-07-01] MEDS: MIDODRINE HCL 5MG TABLET PO SCH ×3 (08:20→17:15)
[2020-07-01] MEDS: INSULIN GLARGINE UD 100 UNITS/ML SYR SUBCUT SCH (08:25)
[2020-07-01 08:42] LABS: MEAN CORPUSCULAR HEMOGLOBIN 29.6 pg (28.0-32.0); MEAN CORPUSCULAR VOLUME 96.6 fL (81.0-99.0); MEAN PLATELET VOLUME 9.8 fl (7.4-10.4); PLATELET 272 x1000/uL (130-400); RED BLOOD CELL COUNT 2.93 mill/uL (4.2-5.4); RED CELL DISTRIBUTION WIDTH 20.2 % (11.6-14.6)
[2020-07-01 08:51] LABS: HEMATOCRIT. 28.3 % (36.0-48.0); HEMOGLOBIN. 8.7 g/dL (12.0-16.0)
[2020-07-01] MEDS ORDERED: ALBUMIN HUMAN 25GM/100ML (25%) IV SCH (09:00)
[2020-07-01] MEDS ORDERED: CALCIUM CHLORIDE 1,000 MG in DEXT 5% WATER 90 ML IV SCH (10:00)
[2020-07-01] MEDS: ACETAMINOPHEN 650MG/20.3ML UDC GT PRN (14:08)
[2020-07-01] MEDS: MEROPENEM 1,000 MG in SODIUM CHLORIDE 0.9% 100 ML IV SCH ×2 (14:31→22:42)
[2020-07-01] MEDS ORDERED: AMIKACIN SULFATE 400 MG in SODIUM CHLORIDE 0.9% 100 ML IV SCH (15:00)
[2020-07-01 15:04] LABS: NUCLEATED RED BLOOD CELLS 4 /100 WBC
[2020-07-01 15:05] LABS: PLATELET ESTIMATE NORMAL
[2020-07-01] MEDS: DEXTROSE 50% WATER 50ML SYRINGE IV PRN ×2 (18:27→23:46)
[2020-07-01] MEDS: DOPAMINE 400MG/250ML PREMIX 250 ML IV PRN (23:45)
[2020-07-02] VITALS (23 sets, daily range): BP systolic 84–121; BP diastolic 51–73
[2020-07-02] MEDS: BLOOD SUGAR DIAGNOSTIC STRIP TEST SCH ×2 (00:15→05:06)
[2020-07-02] MEDS: NOREPINEPHRINE 32 MG in DEXT 5% WATER 218 ML IV PRN (02:06)
[2020-07-02] MEDS ORDERED: DEXT 10% WATER 1,000 ML IV SCH (03:00)
[2020-07-02] MEDS: DEXTROSE 50% WATER 50ML SYRINGE IV PRN (03:17)
[2020-07-02] MEDS: DOPAMINE 400MG/250ML PREMIX 250 ML IV PRN (04:04)
[2020-07-02] MEDS: VASOPRESSIN 20 UNIT in SODIUM CHLORIDE 0.9% 99 ML IV PRN (04:10)
[2020-07-02] MEDS: INSULIN LISPRO 100 UNITS/ML SUBCUT SCH ×2 (05:09)
[2020-07-02] MEDS: MEROPENEM 1,000 MG in SODIUM CHLORIDE 0.9% 100 ML IV SCH (05:11)
[2020-07-02 05:49] LABS: MEAN CORPUSCULAR HEMOGLOBIN 29.7 pg (28.0-32.0); MEAN CORPUSCULAR VOLUME 105.7 fL (81.0-99.0); MEAN PLATELET VOLUME 10.6 fl (7.4-10.4); PLATELET 108 x1000/uL (130-400); RED BLOOD CELL COUNT 1.86 mill/uL (4.2-5.4); RED CELL DISTRIBUTION WIDTH 20.5 % (11.6-14.6)
[2020-07-02 05:52] LABS: CHLORIDE 96 mEq/L (98-107)
[2020-07-02 06:18] LABS: HEMATOCRIT. 19.7 % (36.0-48.0); HEMOGLOBIN. 5.5 g/dL (12.0-16.0)
[2020-07-02 06:35] LABS: PHOSPHORUS 11.1 mg/dL (2.5-4.9)
[2020-07-02] MEDS: PHENYLEPHRINE 100 MG in DEXT 5% WATER 240 ML IV PRN (07:16)
[2020-07-02] MEDS ORDERED: SODIUM BICARBONATE 8.4% 1 MEQ/ML 50ML SYR IV SCH (07:30)
[2020-07-02 13:30] LABS: NUCLEATED RED BLOOD CELLS 3 /100 WBC; PLATELET ESTIMATE SLIGHTLY DECREASED
== END 2020-07-02 08:18 | disposition expired | DRG 870 ==
LOC: ER 17:15 → MICUSO 21:44 → 7WST 05-27 07:54 → MICUSO 06-05 18:19 → 5EST 06-15 16:52 → MICUSO 06-26 20:00
PROVIDERS: ADMIT Internal Medicine; ATTEND Internal Medicine
PROC: 5A09557 Assistance with Respiratory Ventilation, Greater than 96 Consecutive Hours, Continuous Positive Airway Pressure (ICD-10-PCS; principal; 2020-05-28)
PROC: B5181ZA Fluoroscopy of Superior Vena Cava using Low Osmolar Contrast, Guidance (ICD-10-PCS; 2020-05-31)
PROC: 02HV33Z Insertion of Infusion Device into Superior Vena Cava, Percutaneous Approach (ICD-10-PCS; 2020-05-31)
PROC: B548ZZA Ultrasonography of Superior Vena Cava, Guidance (ICD-10-PCS; 2020-05-31)
PROC: 5A1955Z Respiratory Ventilation, Greater than 96 Consecutive Hours (ICD-10-PCS; 2020-06-05)
PROC: 0BH17EZ Insertion of Endotracheal Airway into Trachea, Via Natural or Artificial Opening (ICD-10-PCS; 2020-06-05)
DX: A41.89 Other specified sepsis (principal); U07.1 COVID-19; J12.82 Pneumonia due to coronavirus disease 2019; R65.21 Severe sepsis with septic shock; J80 Acute respiratory distress syndrome; G93.41 Metabolic encephalopathy; K72.00 Acute and subacute hepatic failure without coma; J44.1 Chronic obstructive pulmonary disease with (acute) exacerbation; J44.0 Chronic obstructive pulmonary disease with (acute) lower respiratory infection; E87.1 Hypo-osmolality and hyponatremia; B37.49 Other urogenital candidiasis; E87.4 Mixed disorder of acid-base balance; I47.1 Supraventricular tachycardia; J93.9 Pneumothorax, unspecified; N17.9 Acute kidney failure, unspecified; Z16.21 Resistance to vancomycin; K92.2 Gastrointestinal hemorrhage, unspecified; E44.0 Moderate protein-calorie malnutrition; Z66 Do not resuscitate; E87.6 Hypokalemia; E87.5 Hyperkalemia; E83.51 Hypocalcemia; B97.89 Other viral agents as the cause of diseases classified elsewhere; I10 Essential (primary) hypertension; D64.9 Anemia, unspecified; B95.2 Enterococcus as the cause of diseases classified elsewhere; E83.39 Other disorders of phosphorus metabolism; I49.3 Ventricular premature depolarization; J84.10 Pulmonary fibrosis, unspecified; L89.329 Pressure ulcer of left buttock, unspecified stage; L89.319 Pressure ulcer of right buttock, unspecified stage; K59.00 Constipation, unspecified; E11.649 Type 2 diabetes mellitus with hypoglycemia without coma; T38.0X5A Adverse effect of glucocorticoids and synthetic analogues, initial encounter; Y92.89 Other specified places as the place of occurrence of the external cause; Z79.4 Long term (current) use of insulin; Z82.49 Family history of ischemic heart disease and other diseases of the circulatory system; Z83.3 Family history of diabetes mellitus; Z68.33 Body mass index [BMI] 33.0-33.9, adult; Z79.82 Long term (current) use of aspirin; Z79.1 Long term (current) use of non-steroidal anti-inflammatories (NSAID); Z79.899 Other long term (current) drug therapy
CPT/HCPCS: 31500; 36415; 36600; 71045; 76937; 80048; 80053; 80061; 80076; 80202; 81003; 82040; 82375; 82550; 82553; 82728; 82805; 82962; 83036; 83605; 83615; 83735; 83880; 84100; 84132; 84134; 84145; 84478; 84484; 85025; 85379; 85651; 86140; 87070; 87077; 87106; 87186; 87426; 87635; 93005; 93970; 94002; 94003; 94640; 94660; 96365; 99291; A6261; C1725; C1893; J0278; J0456; J0696; J1100; J1265; J1650; J1815; J1940; J2060; J2185; J2250; J2370; J2405; J2704; J2920; J3010; J3370; J3475; J3480; J3490; J7040; J7042; J7050; J7060; J7070; P9047; A4315